=== PATIENT | female | born 1945 | race Caucasian/White ===

== ENCOUNTER → 2016-08-17 | Outpatient (REF) | payer MEDICARE, OTHER ==
[2016-08-17 09:51] LABS: BASO # 0.1 K/mm3 (0.0-0.2); BASO % 1.6 % (0.0-1.0); EOS # 0.2 K/mm3 (0.0-0.50); EOS % 3.1 % (0.0-3.0); LARGE UNSTAINED CELL # 0.1 K/mm3 (0.0-0.4); LYMPH # 2.3 K/mm3 (1.5-4.5); LYMPH % 34.9 % (24.0-44.0); MEAN CORPUSCULAR HEMOGLOBIN 29.6 pg (27.0-33.0); MEAN CORPUSCULAR HGB CONC 33.2 g/dl (32.0-36.5); MEAN CORPUSCULAR VOLUME 89.2 fl (80.0-96.0); MONO # 0.4 K/mm3 (0.0-0.8); MONO % 6.6 % (0.0-5.0); NEUTROPHILS # 3.4 K/mm3 (1.8-7.7); NEUTROPHILS % 51.8 % (36.0-66.0); PLATELET COUNT, AUTOMATED 256 k/mm3 (150-450); RED CELL DISTRIBUTION WIDTH 13.2 % (11.5-14.5); WHITE BLOOD COUNT 6.6 K/mm3 (4.0-10.0)
[2016-08-17 10:19] LABS: ALBUMIN 3.9 GM/DL (3.2-5.2); ALKALINE PHOSPHATASE 76 U/L (45-117); ALT/SGPT 33 U/L (12-78); ANION GAP 7 MEQ/L (8-16); AST/SGOT 16 U/L (15-37); BILIRUBIN,TOTAL 0.5 MG/DL (0.2-1.0); BLOOD UREA NITROGEN 20 MG/DL (7-18); CALCIUM LEVEL 8.5 MG/DL (8.8-10.2); CARBON DIOXIDE LEVEL 29 MEQ/L (21-32); CHLORIDE LEVEL 106 MEQ/L (98-107); CHOLESTEROL LEVEL 143 MG/DL (<200); CREATININE FOR GFR 0.79 MG/DL (0.55-1.02); GLOMERULAR FILTRATION RATE > 60.0 (>39); GLUCOSE, FASTING 115 MG/DL (83-110); POTASSIUM SERUM 4.2 MEQ/L (3.5-5.1); SODIUM LEVEL 142 MEQ/L (136-145); TOTAL PROTEIN 6.5 GM/DL (6.4-8.2); TRIGLYCERIDES LEVEL 115 MG/DL (<150)
== END ==
LOC: M LAB REF 09:24
PROVIDERS: ATTEND Family Medicine
DX: I10 Essential (primary) hypertension (principal); R73.9 Hyperglycemia, unspecified; E78.00 Pure hypercholesterolemia, unspecified

== ENCOUNTER → 2016-08-20 | Outpatient (CLI) | payer MEDICARE, OTHER ==
--- NOTE | 2016-08-20 10:35 | REP ---
LEFT HIP, TWO VIEWS: HISTORY: Pain. There is no acute fracture or dislocation. There is narrowing of the joint space. There is sclerosis in the acetabulum. IMPRESSION: Degenerative change as described above. Signed by Maksim Marino MD 08/20/2016 10:40 A
--- NOTE | 2016-08-20 10:37 | REP ---
LUMBAR SPINE, FIVE VIEWS: HISTORY: Left hip pain. COMPARISON: 10/09/2011 There is no acute fracture. The intervertebral discs are decreased in height consistent with disc degeneration. Osteophytes are present on L2, L3, and L5. There is sclerosis of the endplates of the L2 and L3 vertebral bodies. There is narrowing of the L4-5 and L5-S1 facet joints. There are 3 mm of retrolisthesis of L2 on L3 and 3 mm of grade 1 spondylolisthesis of L4 on L5. Calcification is present in the right upper quadrant, likely representing cholelithiasis. IMPRESSION: Degenerative change as described above. Signed by Maksim Marino MD 08/20/2016 10:39 A
== END ==
LOC: M LAB 09:11
PROVIDERS: ATTEND Physician Assistant
DX: M25.552 Pain in left hip (principal)

== ENCOUNTER → 2016-08-21 | Outpatient (REF) ==
--- NOTE | 2016-08-21 09:41 | REPMRS ---
Patient History The patient states she had a clinical breast exam in Patient is postmenopausal. Family history of breast cancer in mother at age 50 or over, breast cancer in maternal aunt at age 50 or over, and breast cancer in maternal grandmother under age 50. Digital Woman Screen Mammo: August 21, 2016 - Exam #: [id number] Bilateral CC and MLO view(s) were taken. Technologist: Ramona Kaiser, Technologist Prior study comparison: August 11, 2015, digital woman screen mammo performed at [facility]. August 09, 2014, digital woman screen mammo performed at [facility]. FINDINGS: There are scattered fibroglandular densities. There has been no change in the appearance of the mammogram from the prior studies. There is a mild amount of residual fibroglandular tissue which is fairly symmetric. There is no interval development of dominant mass, architectural distortion, or clustered microcalcification suggestive of malignancy. ASSESSMENT: BI-RADS/ACR category 1 mammogram. Negative. Recommendation Routine screening mammogram in 1 year (for women over age 40). This mammogram was interpreted with the aid of an FDA-approved computer-aided dectection system. Electronically Signed By: Darron Barcenas MD 08/21/16 2084
== END ==
LOC: M WHC 08:16
PROVIDERS: ATTEND Nurse Practitioner Women's Health
DX: Z12.31 Encounter for screening mammogram for malignant neoplasm of breast (principal); Z78.0 Asymptomatic menopausal state

== ENCOUNTER → 2016-08-21 | Outpatient (REF) | payer MEDICARE, OTHER | LOC: M SFHCWAGY 08:32 | PROVIDERS: ATTEND Nurse Practitioner Women's Health | DX: Z12.4 Encounter for screening for malignant neoplasm of cervix (principal) | CPT/HCPCS: G0101; G0123 ==

== ENCOUNTER → 2016-08-29 | Outpatient (CLI) | payer OTHER, MEDICARE ==
--- NOTE | 2016-08-30 02:18 | REP ---
Clinical: Routine checkup. Technique: PA and lateral. Comparison: 08/12/2014. Findings: The mediastinum and cardiac silhouette are normal. The lung nye are well-aerated and clear in the frontal projection. However, lateral projection suggest the possibility of infiltrate involving the posterior lower lung zone and correlation is recommended. No effusion. No pneumothorax. Skeletal structures intact. Impression: Cannot exclude an infiltrative process in the posterior inferior lung zone based on lateral radiograph. If the patient asymptomatic, chest CT may be warranted for further investigation. Signed by Francisco Linares MD 08/30/2016 02:09 A
--- NOTE | 2016-08-30 18:42 | ECGEPIP ---
Stationary ECG Study [facility] Test Date: 2016-08-29 Pat Name: CHRIS PUENTE Department: Room: - Gender: F Drafter Assistant: : 1945 Requested By: Joe CARMICHAELC Order Number: [id number] Reading MD: Elliot Gordon Measurements Intervals Effie Rate: 63 P: 47 NE: 187 QRS: -12 QRSD: 85 T: 15 QT: 404 QTc: 414 Interpretive Statements SINUS RHYTHM NON-SPECIFIC ANTERIOR ST/T ABNORMALITY COMPARED TO THE LAST 2 TRACINGS, NO SIGNIFICANT CHANGES Electronically Signed On 08-30-2016 18:41:51 EDT by Elliot Gordon
== END ==
LOC: M EKG 16:11
PROVIDERS: ATTEND Physician Assistant
DX: Z00.00 Encounter for general adult medical examination without abnormal findings (principal)

== ENCOUNTER → 2016-09-03 | Outpatient (CLI) | payer MEDICARE, OTHER ==
--- NOTE | 2016-09-04 06:33 | REP ---
CT OF THE CHEST WITHOUT CONTRAST: No priors for comparison. REASON FOR EXAM: Prior plain film examination of the chest 08/29/2016 showed a potential process in the posterior inferior lung zone seen only on the lateral view. That prior exam was reviewed. The lack of intravenous contrast decreases the sensitivity of the exam. There is no evidence of mediastinal or hilar adenopathy. There are no pleural or pericardial effusions. The imaged upper abdomen shows cholelithiasis. The imaged osseous structures are within normal limits for the patient's age. Evaluation of the lung nye show no abnormal nodules, mass, or opacities. Mild biapical pleuroparenchymal scarring is suspected. IMPRESSION: No evidence of acute disease. Findings as described above. Signed by Lee Price DO 09/04/2016 01:59 P
== END ==
LOC: M RAD 16:07
PROVIDERS: ATTEND Physician Assistant
DX: R09.89 Other specified symptoms and signs involving the circulatory and respiratory systems (principal)

== ENCOUNTER → 2016-09-07 | Outpatient (CLI) | payer MEDICARE, OTHER ==
--- NOTE | 2016-09-10 10:41 | DEXA ---
AP SPINE L1 - L4 1.321 1.0 2.0 LT FEMUR TOTAL 1.142 1.1 0.1 RT FEMUR TOTAL 1.191 1.5 2.5 TOTAL BODY TOTAL OTHER DUAL FEMUR FRAX* ASSESSMENT Risk factors: None. 10 year probability of fracture Major osteoporotic fracture 6.6 % Hip fracture 0.3 % COMMENTS: Normal bone densitometry of the spine and hips. The density of the spine has increased 11.0% since 05/31/2011. The density of the left hip has increased 1.5% since 05/31/2011. The density of the right hip has increased 1.3% since 05/31/2011. FOLLOW-UP: Recommendation for the next bone density exam: 5 years. FELICIA
== END ==
LOC: M WHC 08:02
PROVIDERS: ATTEND Nurse Practitioner Women's Health
DX: Z13.820 Encounter for screening for osteoporosis (principal); Z78.0 Asymptomatic menopausal state

== ENCOUNTER → 2016-10-26 | Outpatient (REF) ==
[2016-10-26 09:58] LABS: ANION GAP 5 MEQ/L (8-16); BLOOD UREA NITROGEN 22 MG/DL (7-18); CALCIUM LEVEL 8.9 MG/DL (8.8-10.2); CARBON DIOXIDE LEVEL 28 MEQ/L (21-32); CHLORIDE LEVEL 110 MEQ/L (98-107); CHOLESTEROL LEVEL 150 MG/DL (<200); CREATININE FOR GFR 0.83 MG/DL (0.55-1.02); GLOMERULAR FILTRATION RATE > 60.0 (>39); GLUCOSE, FASTING 100 MG/DL (83-110); POTASSIUM SERUM 4.2 MEQ/L (3.5-5.1); SODIUM LEVEL 143 MEQ/L (136-145); TRIGLYCERIDES LEVEL 99 MG/DL (<150)
[2016-10-26 10:02] LABS: MEAN CORPUSCULAR HEMOGLOBIN 30.6 pg (27.0-33.0); MEAN CORPUSCULAR HGB CONC 33.8 g/dl (32.0-36.5); MEAN CORPUSCULAR VOLUME 90.7 fl (80.0-96.0); RED CELL DISTRIBUTION WIDTH 13.2 % (11.5-14.5)
[2016-10-26 10:03] LABS: HEPATITIS B SURFACE ANTIBODY NEGATIVE (POSITIVE)
== END ==
LOC: M LAB REF 09:17
PROVIDERS: ATTEND Physician Assistant
DX: Z00.00 Encounter for general adult medical examination without abnormal findings (principal)

== ENCOUNTER → 2016-11-19 | Outpatient (REF) | payer MEDICARE, OTHER ==
[2016-11-19 16:47] LABS: ANION GAP 7 MEQ/L (8-16); BLOOD UREA NITROGEN 16 MG/DL (7-18); CALCIUM LEVEL 9.6 MG/DL (8.8-10.2); CARBON DIOXIDE LEVEL 29 MEQ/L (21-32); CHLORIDE LEVEL 107 MEQ/L (98-107); CREATININE FOR GFR 0.81 MG/DL (0.55-1.02); GLOMERULAR FILTRATION RATE > 60.0 (>39); GLUCOSE, FASTING 86 MG/DL (83-110); POTASSIUM SERUM 4.6 MEQ/L (3.5-5.1); SODIUM LEVEL 143 MEQ/L (136-145)
== END ==
LOC: M LAB REF 15:40
PROVIDERS: ATTEND Physician Assistant
DX: R73.01 Impaired fasting glucose (principal)

== ENCOUNTER → 2016-11-20 | Outpatient (CLI) | payer MEDICARE, OTHER ==
--- NOTE | 2016-11-20 12:57 | REP ---
Cervical spine seven views: There are no comparisons. Vertebral body heights are normal C1-C7. Kilos obscured by the shoulders on all lateral views. There is advanced degenerative disc disease at C 05/06 and C6-7. There is a slight anterolisthesis on the flexion view see three and C4 which corrects on the extension view, likely ligamentous laxity. The prevertebral soft tissues are normal. There is facet osteoarthritis. There is bony foraminal encroachment on the left at C 03/04 from facet hypertrophy and on the right at C 05/06 from uncinate spurring and at C 06/07 from uncinate spurring. The odontoid view is unremarkable. Impression: Degenerative disc disease. Facet osteoarthritis. Mild listhesis, likely from ligamentous laxity as described. Bony foraminal encroachment as described. Depending on symptomatology consider MRI. Signed by Darron Gillis MD 11/20/2016 12:49 P
== END ==
LOC: M WUC 09:55
PROVIDERS: ATTEND Family Medicine
DX: M54.2 Cervicalgia (principal)

== ENCOUNTER → 2017-03-25 | Outpatient (REF) | payer MEDICARE, OTHER ==
[2017-03-25 10:45] LABS: ALBUMIN 3.8 GM/DL (3.2-5.2); ALBUMIN/GLOBULIN RATIO 1.46 (1.00-1.93); ALKALINE PHOSPHATASE 75 U/L (45-117); ALT/SGPT 34 U/L (12-78); ANION GAP 7 MEQ/L (8-16); AST/SGOT 16 U/L (7-37); BILIRUBIN,TOTAL 0.6 MG/DL (0.2-1.0); BLOOD UREA NITROGEN 19 MG/DL (7-18); CALCIUM LEVEL 9.1 MG/DL (8.8-10.2); CARBON DIOXIDE LEVEL 29 MEQ/L (21-32); CHLORIDE LEVEL 108 MEQ/L (98-107); CHOLESTEROL LEVEL 162 MG/DL (<200); GLOMERULAR FILTRATION RATE > 60.0 (>39); GLUCOSE, FASTING 114 MG/DL (83-110); POTASSIUM SERUM 4.3 MEQ/L (3.5-5.1); SODIUM LEVEL 144 MEQ/L (136-145); TOTAL PROTEIN 6.4 GM/DL (6.4-8.2); TRIGLYCERIDES LEVEL 103 MG/DL (<150)
== END ==
LOC: M LAB REF 09:58
PROVIDERS: ATTEND Family Medicine
DX: E78.00 Pure hypercholesterolemia, unspecified (principal); R73.01 Impaired fasting glucose; I10 Essential (primary) hypertension

== ENCOUNTER 2017-05-08 09:22 | Day surgery (SDC) | payer MEDICARE, OTHER ==
[2017-05-08] MEDS: NS 1,000 ML IV (09:30)
[2017-05-08] MEDS ORDERED: LIDOCAINE 2% INJ 100 MG/5 ML SDV (FOR ANES.) As Ordered (09:42)
[2017-05-08] MEDS ORDERED: PROPOFOL 200 MG/20 ML VIAL As Ordered (09:42)
== END 2017-05-08 11:37 | disposition home or self-care (01) ==
LOC: M OPP 09:22
DX: Z12.11 Encounter for screening for malignant neoplasm of colon (principal); K64.0 First degree hemorrhoids; R12 Heartburn; K21.9 Gastro-esophageal reflux disease without esophagitis; K22.8 Other specified diseases of esophagus; K29.70 Gastritis, unspecified, without bleeding; K80.20 Calculus of gallbladder without cholecystitis without obstruction; I10 Essential (primary) hypertension; E78.5 Hyperlipidemia, unspecified; Z78.0 Asymptomatic menopausal state; Z87.891 Personal history of nicotine dependence; Z79.899 Other long term (current) drug therapy; Z80.1 Family history of malignant neoplasm of trachea, bronchus and lung; Z80.3 Family history of malignant neoplasm of breast; Z80.52 Family history of malignant neoplasm of bladder; Z80.51 Family history of malignant neoplasm of kidney
CPT/HCPCS: G0121

== ENCOUNTER → 2017-08-26 | Outpatient (REF) | payer MEDICARE, OTHER ==
[2017-08-26 11:46] LABS: ESTIMATED AVERAGE GLUCOSE 126 MG/DL (60-110)
[2017-08-26 12:14] LABS: ANION GAP 7 MEQ/L (8-16); BLOOD UREA NITROGEN 16 MG/DL (7-18); CARBON DIOXIDE LEVEL 26 MEQ/L (21-32); CHLORIDE LEVEL 110 MEQ/L (98-107); CREATININE FOR GFR 0.92 MG/DL (0.55-1.30); GLOMERULAR FILTRATION RATE > 60.0 (>39); GLUCOSE, FASTING 108 MG/DL (70-100); POTASSIUM SERUM 4.4 MEQ/L (3.5-5.1); SODIUM LEVEL 143 MEQ/L (136-145)
== END ==
LOC: M LAB 11:16
DX: I10 Essential (primary) hypertension (principal)
CPT/HCPCS: 83036

== ENCOUNTER → 2017-09-18 | Outpatient (REF) | payer MEDICARE, OTHER | LOC: M SFHCWAGY 12:31 | DX: Z12.4 Encounter for screening for malignant neoplasm of cervix (principal); N95.2 Postmenopausal atrophic vaginitis | CPT/HCPCS: G0123 ==

== ENCOUNTER → 2017-09-18 | Outpatient (CLI) | payer MEDICARE, OTHER | LOC: M WHC 11:30 | DX: Z12.31 Encounter for screening mammogram for malignant neoplasm of breast (principal); Z78.0 Asymptomatic menopausal state; Z80.3 Family history of malignant neoplasm of breast; Z12.4 Encounter for screening for malignant neoplasm of cervix; N95.2 Postmenopausal atrophic vaginitis | CPT/HCPCS: 77067; G0123 ==

== ENCOUNTER → 2018-01-22 | Outpatient (CLI) | payer MEDICARE, OTHER ==
[2018-01-22 12:06] LABS: BASO # 0.1 10^3/uL (0.0-0.2); BASO % 1.7 % (0.0-1.0); EOS # 0.2 10^3/uL (0.0-0.50); EOS % 2.8 % (0.0-3.0); HEMATOCRIT 39.2 % (36.0-47.0); HEMOGLOBIN 13.2 g/dl (12.0-15.5); IMMATURE GRANULOCYTE % 0.5 % (0-3.0); LYMPH # 2.3 10^3/uL (1.5-4.5); LYMPH % 37.7 % (24.0-44.0); MEAN CORPUSCULAR HEMOGLOBIN 30.4 pg (27.0-33.0); MEAN CORPUSCULAR HGB CONC 33.7 g/dl (32.0-36.5); MEAN CORPUSCULAR VOLUME 90.3 fl (80.0-96.0); MONO # 0.6 10^3/uL (0.0-0.8); NEUTROPHILS # 2.8 10^3/uL (1.8-7.7); NEUTROPHILS % 47.3 % (36.0-66.0); PLATELET COUNT, AUTOMATED 228 10^3/uL (150-450); RED BLOOD COUNT 4.34 10^6/uL (4.00-5.40); RED CELL DISTRIBUTION WIDTH 12.7 % (11.5-14.5)
[2018-01-22 15:04] LABS: ESTIMATED AVERAGE GLUCOSE 123 MG/DL (60-110); HEMOGLOBIN A1c 5.9 %
[2018-01-22 17:07] LABS: ALKALINE PHOSPHATASE 73 U/L (45-117); ALT/SGPT 40 U/L (12-78); ANION GAP 8 MEQ/L (8-16); AST/SGOT 21 U/L (7-37); BILIRUBIN,TOTAL 0.6 MG/DL (0.2-1.0); BLOOD UREA NITROGEN 20 MG/DL (7-18); CALCIUM LEVEL 9.4 MG/DL (8.8-10.2); CARBON DIOXIDE LEVEL 27 MEQ/L (21-32); CHLORIDE LEVEL 109 MEQ/L (98-107); CREATININE FOR GFR 0.79 MG/DL (0.55-1.30); GLOMERULAR FILTRATION RATE > 60.0 (>39); GLUCOSE, FASTING 93 MG/DL (70-100); POTASSIUM SERUM 4.3 MEQ/L (3.5-5.1); SODIUM LEVEL 144 MEQ/L (136-145)
[2018-01-22 17:08] LABS: ALBUMIN 4.1 GM/DL (3.2-5.2); ALBUMIN/GLOBULIN RATIO 1.64 (1.00-1.93); CHOLESTEROL LEVEL 131 MG/DL (<200); CHOLESTEROL RISK RATIO 2.425 (<5); HDL CHOLESTEROL 54 MG/DL (>40); LDL CHOLESTEROL 57 MG/DL (<100); NON-HDL-C 77 MG/DL; TOTAL PROTEIN 6.6 GM/DL (6.4-8.2); TRIGLYCERIDES LEVEL 99 MG/DL (<150)
[2018-01-22 17:09] LABS: FREE T4 0.84 NG/DL (0.76-1.46)
== END ==
LOC: M LAB 11:05
DX: I10 Essential (primary) hypertension (principal); R73.01 Impaired fasting glucose; E78.00 Pure hypercholesterolemia, unspecified; K21.9 Gastro-esophageal reflux disease without esophagitis
CPT/HCPCS: 84443

== ENCOUNTER → 2018-01-24 | Outpatient (REF) | payer MEDICARE, OTHER ==
[2018-01-24 15:52] LABS: CPK CREATINE PHOSPHOKINASE 168 U/L (26-192)
[2018-01-24 15:52] LABS: C REACTIVE PROTEIN QUANTITATIV < 0.30 MG/DL (0.00-0.30)
[2018-01-24 16:28] LABS: ERYTHROCYTE SEDIMENTATION RATE 13 mm/hr (0-30)
[2018-01-28 00:07] LABS: Lyme Disease IgG/IgM Antibodie <0.91 ISR (0.00-0.90); Lyme Disease IgM Ab Quantitati <0.80 index (0.00-0.79)
== END ==
LOC: M LABDRAW1 11:01
DX: M25.50 Pain in unspecified joint (principal)
CPT/HCPCS: 82550

== ENCOUNTER → 2018-02-19 | Outpatient (CLI) | payer MEDICARE, OTHER | LOC: M CARPUL 09:40 | DX: R01.1 Cardiac murmur, unspecified (principal) | CPT/HCPCS: 93306 ==

== ENCOUNTER → 2018-03-18 | Outpatient (REF) | payer MEDICARE, OTHER | LOC: M LAB REF 16:12 | DX: C44.622 Squamous cell carcinoma of skin of right upper limb, including shoulder (principal) | CPT/HCPCS: 88304 ==

== ENCOUNTER → 2018-07-24 | Outpatient (REF) | payer MEDICARE, OTHER ==
[~2018-07-24] MED LIST: LOSA100T50 PO; ROSU40TA3 PO
[2018-07-24 14:42] LABS: ALBUMIN 4.2 GM/DL (3.2-5.2); ALT/SGPT 42 U/L (12-78); BILIRUBIN,TOTAL 0.7 MG/DL (0.2-1.0); BLOOD UREA NITROGEN 22 MG/DL (7-18); CALCIUM LEVEL 9.3 MG/DL (8.8-10.2); CARBON DIOXIDE LEVEL 28 MEQ/L (21-32); CHLORIDE LEVEL 107 MEQ/L (98-107); CREATININE FOR GFR 0.82 MG/DL (0.55-1.30); GLOMERULAR FILTRATION RATE > 60.0 (>39); GLUCOSE, FASTING 93 MG/DL (70-100); POTASSIUM SERUM 4.6 MEQ/L (3.5-5.1); SODIUM LEVEL 141 MEQ/L (136-145); TOTAL PROTEIN 6.7 GM/DL (6.4-8.2)
[2018-07-26 00:08] LABS: Lyme Disease IgG/IgM Antibodie <0.91 ISR (0.00-0.90); Lyme Disease IgM Ab Quantitati <0.80 index (0.00-0.79)
== END ==
LOC: M LABDRAW1 13:58
PROVIDERS: ATTEND Family Medicine
DX: R73.01 Impaired fasting glucose (principal); M25.50 Pain in unspecified joint

== ENCOUNTER → 2018-08-13 | Outpatient (REF) | payer MEDICARE, OTHER | LOC: M SFHCPLAZ 11:13 | PROVIDERS: ATTEND Internal Medicine Rheumatology | DX: M25.50 Pain in unspecified joint (principal); Z53.8 Procedure and treatment not carried out for other reasons | CPT/HCPCS: 36415; G0463 ==

== ENCOUNTER → 2018-08-18 | Outpatient (CLI) | payer MEDICARE, OTHER | LOC: M LAB 13:50 | PROVIDERS: ATTEND Internal Medicine Rheumatology | DX: M25.50 Pain in unspecified joint (principal) ==

== ENCOUNTER → 2018-09-24 | Outpatient (CLI) | payer MEDICARE, OTHER ==
--- NOTE | 2018-09-24 10:47 | REPMRS ---
Patient History The patient states she had a clinical breast exam in 08/2018. Patient is postmenopausal. Family history of breast cancer at age 50 or over in mother, breast cancer at age 50 or over in maternal aunt, breast cancer under age 50 in maternal grandmother. No Hormone Replacement Therapy 3D TOMOSYNTHESIS WAS PERFORMED. Digital Woman Screen Mammo: September 24, 2018 - Exam #: [id number] Bilateral CC and MLO view(s) were taken. Technologist: Margie Upton, Technologist Prior study comparison: September 18, 2017, digital woman screen mammo performed at [facility]. August 21, 2016, digital woman screen mammo performed at [facility]. FINDINGS: There are scattered fibroglandular densities. There has been no change in the appearance of the mammogram from the prior studies. There is a mild amount of residual fibroglandular tissue which is fairly symmetric. There is no interval development of dominant mass, architectural distortion, or clustered microcalcification suggestive of malignancy. Assessment: BI-RADS/ACR category 1 mammogram. Negative Mammogram. Recommendation Routine screening mammogram in 1 year (for women over age 40). This mammogram was interpreted with the aid of an FDA-approved computer-aided dectection system. Electronically Signed By: Darron Barcenas MD 09/24/18 1445
== END ==
LOC: M WHC 09:25
PROVIDERS: ATTEND Family Medicine
DX: Z01.419 Encounter for gynecological examination (general) (routine) without abnormal findings (principal); Z12.31 Encounter for screening mammogram for malignant neoplasm of breast; Z78.0 Asymptomatic menopausal state; Z80.3 Family history of malignant neoplasm of breast
CPT/HCPCS: 77063; 77067; G0101

== ENCOUNTER → 2019-03-23 | Outpatient (CLI) | payer MEDICARE, OTHER ==
[~2019-03-23] MED LIST changes: -ROSU40TA3 PO; +ROSU40TA4 PO
[2019-03-23 13:06] LABS: BASO # 0.1 10^3/uL (0.0-0.2); BASO % 2.1 % (0.0-1.0); EOS # 0.1 10^3/uL (0.0-0.5); EOS % 2.1 % (0.0-3.0); HEMATOCRIT 40.8 % (36.0-47.0); HEMOGLOBIN 13.3 g/dl (12.0-15.5); LYMPH % 38.6 % (24.0-44.0); MEAN CORPUSCULAR HGB CONC 32.6 g/dl (32.0-36.5); MEAN CORPUSCULAR VOLUME 91.9 fl (80.0-96.0); MONO # 0.6 10^3/uL (0.0-0.8); MONO % 11.7 % (0.0-5.0); NEUTROPHILS # 2.4 10^3/uL (1.5-8.5); NEUTROPHILS % 44.9 % (36.0-66.0); PLATELET COUNT, AUTOMATED 246 10^3/uL (150-450); RED BLOOD COUNT 4.44 10^6/uL (4.00-5.40); WHITE BLOOD COUNT 5.3 10^3/uL (4.0-10.0)
[2019-03-23 13:22] LABS: ALBUMIN 3.6 GM/DL (3.2-5.2); ALT/SGPT 46 U/L (12-78); BILIRUBIN,TOTAL 0.9 MG/DL (0.2-1.0); BLOOD UREA NITROGEN 22 MG/DL (7-18); CALCIUM LEVEL 9.1 MG/DL (8.8-10.2); CARBON DIOXIDE LEVEL 28 MEQ/L (21-32); CHLORIDE LEVEL 107 MEQ/L (98-107); CHOLESTEROL LEVEL 151 MG/DL (<200); CHOLESTEROL RISK RATIO 2.903 (<5); CREATININE FOR GFR 0.95 MG/DL (0.55-1.30); GLOMERULAR FILTRATION RATE > 60.0 (>39); GLUCOSE, FASTING 111 MG/DL (70-100); HDL CHOLESTEROL 52 MG/DL (>40); LDL CHOLESTEROL 78 MG/DL (<100); NON-HDL-C 99 MG/DL; POTASSIUM SERUM 4.1 MEQ/L (3.5-5.1); SODIUM LEVEL 143 MEQ/L (136-145); TOTAL PROTEIN 6.6 GM/DL (6.4-8.2); TRIGLYCERIDES LEVEL 105 MG/DL (<150)
[2019-03-23 14:13] LABS: HEMOGLOBIN A1c 6.2 %
== END ==
LOC: M WUC 09:54
PROVIDERS: ATTEND Family Medicine
DX: R73.01 Impaired fasting glucose (principal); E78.00 Pure hypercholesterolemia, unspecified; K21.9 Gastro-esophageal reflux disease without esophagitis

== ENCOUNTER → 2019-10-12 | Outpatient (CLI) | payer MEDICARE, OTHER ==
[2019-10-12 17:34] LABS: HEMOGLOBIN A1c 6.1 %
[2019-10-12 17:49] LABS: BLOOD UREA NITROGEN 19 MG/DL (7-18); CALCIUM LEVEL 9.4 MG/DL (8.8-10.2); CARBON DIOXIDE LEVEL 25 MEQ/L (21-32); CHLORIDE LEVEL 108 MEQ/L (98-107); CREATININE FOR GFR 0.86 MG/DL (0.55-1.30); GLOMERULAR FILTRATION RATE > 60.0 (>39); GLUCOSE, FASTING 101 MG/DL (70-100); POTASSIUM SERUM 4.2 MEQ/L (3.5-5.1); SODIUM LEVEL 140 MEQ/L (136-145)
== END ==
LOC: M WUC 11:59
PROVIDERS: ATTEND Physician Assistant
DX: R73.01 Impaired fasting glucose (principal)

== ENCOUNTER → 2019-10-13 | Outpatient (CLI) | payer MEDICARE, OTHER ==
[~2019-10-13] MED LIST changes: +ALEV220T22 PO; +VITA200010
--- NOTE | 2019-10-13 13:03 | REPMRS ---
Patient History The patient states she has not had a clinical breast exam in over a year. Family history of breast cancer at age 50 or over in mother, breast cancer at age 50 or over in maternal aunt, breast cancer under age 50 in maternal grandmother. No Hormone Replacement Therapy Digital Woman Screen Mammo: October 13, 2019 - Exam #: [id number] Bilateral CC and MLO view(s) were taken. Technologist: Eulalia Hester Technologist Prior study comparison: September 24, 2018, bilateral digital woman screen mammo performed at [facility]. September 18, 2017, digital woman screen mammo performed at [facility]. August 21, 2016, digital woman screen mammo performed at [facility]. FINDINGS: The breast tissue is almost entirely fat. The Volpara volumetric breast density category is: A. There has been no change in the appearance of the mammogram from the prior studies. There is no interval development of dominant mass, architectural distortion, or grouped microcalcification typical of malignancy. 3-D tomosynthesis shows no additional findings. Assessment: BI-RADS/ACR category 1 mammogram. Negative Mammogram. Recommendation Routine screening mammogram of both breasts in 1 year (for women over age 40). This patient's Lifetime Breast Cancer RIsk is estimated at 13.1 %. This mammogram was interpreted with the aid of an FDA-approved computer-aided dectection system. Electronically Signed By: Alex Mcmahon MD 10/13/19 [id number]
== END ==
LOC: M WHC 12:00
PROVIDERS: ATTEND Family Medicine
DX: Z12.31 Encounter for screening mammogram for malignant neoplasm of breast (principal); Z80.3 Family history of malignant neoplasm of breast

== ENCOUNTER → 2020-04-08 | Outpatient (CLI) | payer MEDICARE, OTHER ==
[~2020-04-08] MED LIST changes: -ALEV220T22 PO; -VITA200010
[2020-04-08 14:39] LABS: BASO # 0.1 10^3/uL (0.0-0.2); BASO % 1.6 % (0.0-1.0); EOS # 0.2 10^3/uL (0.0-0.5); EOS % 2.7 % (0.0-3.0); HEMATOCRIT 40.2 % (36.0-47.0); HEMOGLOBIN 13.2 g/dl (12.0-15.5); LYMPH # 2.3 10^3/uL (1.5-5.0); LYMPH % 36.5 % (24.0-44.0); MEAN CORPUSCULAR HGB CONC 32.8 g/dl (32.0-36.5); MEAN CORPUSCULAR VOLUME 91.4 fl (80.0-96.0); MONO # 0.7 10^3/uL (0.0-0.8); MONO % 10.5 % (0.0-5.0); NEUTROPHILS % 47.9 % (36.0-66.0); PLATELET COUNT, AUTOMATED 223 10^3/uL (150-450); WHITE BLOOD COUNT 6.3 10^3/uL (4.0-10.0)
[2020-04-08 14:44] LABS: ALBUMIN 3.7 GM/DL (3.2-5.2); ALT/SGPT 35 U/L (12-78); BILIRUBIN,TOTAL 0.5 MG/DL (0.2-1.0); BLOOD UREA NITROGEN 18 MG/DL (7-18); CALCIUM LEVEL 9.1 MG/DL (8.8-10.2); CARBON DIOXIDE LEVEL 28 MEQ/L (21-32); CHLORIDE LEVEL 109 MEQ/L (98-107); CHOLESTEROL LEVEL 162 MG/DL (<200); CREATININE FOR GFR 0.81 MG/DL (0.55-1.30); FREE T4 0.85 NG/DL (0.76-1.46); GLOMERULAR FILTRATION RATE > 60.0 (>39); GLUCOSE, FASTING 106 MG/DL (70-100); HDL CHOLESTEROL 54 MG/DL (>40); LDL CHOLESTEROL 82 MG/DL (<100); NON-HDL-C 108 MG/DL; POTASSIUM SERUM 4.2 MEQ/L (3.5-5.1); SODIUM LEVEL 141 MEQ/L (136-145); TOTAL PROTEIN 6.3 GM/DL (6.4-8.2); TRIGLYCERIDES LEVEL 132 MG/DL (<150)
[2020-04-08 15:09] LABS: HEMOGLOBIN A1c 5.9 %
== END ==
LOC: M WUC 10:00
PROVIDERS: ATTEND Family Medicine
DX: I10 Essential (primary) hypertension (principal); E78.00 Pure hypercholesterolemia, unspecified; K21.9 Gastro-esophageal reflux disease without esophagitis; R73.03 Prediabetes

== ENCOUNTER → 2020-06-01 | Outpatient (CLI) | payer MEDICARE, OTHER ==
[~2020-06-01] MED LIST changes: +ALEV220T22 PO; +VITA200010
== END ==
LOC: M LABSMTC 11:54
PROVIDERS: ATTEND Anesthesiology
DX: Z01.812 Encounter for preprocedural laboratory examination (principal); Z20.822 Contact with and (suspected) exposure to COVID-19

== ENCOUNTER 2020-06-06 10:08 | Day surgery (SDC) | payer MEDICARE, OTHER ==
[~2020-06-06] VITALS: Ht 160 cm; Wt 86.6 kg
[~2020-06-06 10:08] MED LIST changes: +CEFUROXIME 1MG/0.1ML INTRACAMERAL INJ As Ordered ONE; +DUOVISC (0.50ML VISCOAT/0.55ML PROVISC) OPHTH KIT As Ordered ONE; +OFLOXACIN 0.3 % (OCUFLOX) OPTH SOL 5ML OS ONE; +PHENYLEPHRINE 2.5% OPHTH SOL 2ML OS ONE; +POVIDONE-IODINE 5% OPHTH PREP SOL 30ML As Ordered ONE; +PROPARACAINE 0.5% OPHTH SOL 15ML OS ONE; +TROPICAMIDE 1% OPHTH SOLN 2ML OS ONE
[2020-06-06] MEDS ORDERED: BSS IRR 500ML/OMIDRIA 4ML IRR BAG (OR ONLY) As Ordered ONE (10:42)
[2020-06-06] MEDS ORDERED: fentaNYL 100 MCG/2 ML INJECTION (J3010) As Ordered ONE (11:04)
[2020-06-06] MEDS ORDERED: MIDAZOLAM INJ 2MG/2ML VIAL (J2250 PER 1MG) As Ordered ONE (11:04)
[2020-06-06 11:22] VITALS: BP 132/74
--- NOTE | 2020-06-08 10:40 | RO ---
OPERATIVE NOTE DATE OF OPERATION: 06/06/2020 PREOPERATIVE DIAGNOSES: 1. Visually significant nuclear sclerotic cataract, left eye. 2. Primary open-angle glaucoma, moderate stage, left eye. POSTOPERATIVE DIAGNOSES: 1. Visually significant nuclear sclerotic cataract, left eye. 2. Primary open-angle glaucoma, moderate stage, left eye. PROCEDURES: 1. Extracapsular cataract removal with insertion of intraocular lens implant of the left eye, AU00T0, D 12.0. 2. Placement of Glaukos iStent. ANESTHESIA: Local (Omidria) with MAC COMPLICATIONS: None POSTOPERATIVE CONDITION: Stable INDICATIONS FOR SURGERY: 1. Blurred vision affecting patient's activities of daily living DESCRIPTION OF PROCEDURE: The patient was seen in the preoperative area and properly identified. The correct operative eye was identified and marked. The patient received topical anesthetic, antibiotics, and topical dilating drops. The patient was then transferred to the operating room. The correct side was re-identified and a timeout was performed. The eye was prepped and draped in a sterile fashion. The eyelids were isolated with Tegaderm tape and the lids were held open with an adjustable speculum. A 1.0mm paracentesis incision was made. Omidria was injected into the anterior chamber. Viscoelastic was then injected into the anterior chamber through the paracentesis. Using a 2.4mm sharp-tipped keratome, the anterior chamber was entered via a temporal clear cornea incision. A continuous curvilinear capsulorhexis was created with Utrata forceps. Hydrodissection was performed with BSS on a blunt cannula until the nucleus was able to rotate freely. The crystalline lens was phacoemulsified and aspirated. Irrigation/aspiration was used to remove the cortical material Cohesive viscoelastic was placed into the capsular bag to deepen it. The implant was placed into the capsular bag and allowed to unfold. Placement was confirmed by visualizing the anterior capsulorhexis. Additional viscoelastic was placed in the anterior chamber, and on top of the cornea. The head was untaped, and rotated away. The microscope was rotated to 45 degrees. A gonioprism was placed on the cornea and the angle was visualized. The iStent inject was placed into the trabecular meshwork, approximately 4 clock hours apart without difficulty. A small gush of heme was noted indicating appropriate placement. No hyphema was present. The head was placed face up and the microscope to 0 degrees. Irrigation/aspiration was used to remove the viscoelastic. The clear corneal incision was hydrated with BSS on a blunt cannula. The lens was well positioned. Cefuroxime was injected into the anterior chamber. The incisions were then tested for leaks and found to be negative. The eye was then palpated for appropriate pressure and adjusted accordingly with BSS. The eyelid speculum was then carefully removed. A shield was placed over the eye. The patient tolerated the procedure well and was discharge to the recovery unit in a stable condition.
== END 2020-06-06 11:48 | disposition home or self-care (01) ==
LOC: M SDC 10:08
PROVIDERS: ATTEND Ophthalmology
DX: H25.12 Age-related nuclear cataract, left eye (principal); H40.1122 Primary open-angle glaucoma, left eye, moderate stage; I10 Essential (primary) hypertension; E78.5 Hyperlipidemia, unspecified; K21.9 Gastro-esophageal reflux disease without esophagitis; Z79.899 Other long term (current) drug therapy; Z87.891 Personal history of nicotine dependence
CPT/HCPCS: 66183; 66984; C1783; J1097; J2250; J3010; V2632

== ENCOUNTER → 2020-06-08 | Outpatient (CLI) | payer MEDICARE, OTHER ==
[~2020-06-08] MED LIST changes: -CEFUROXIME 1MG/0.1ML INTRACAMERAL INJ As Ordered ONE; -DUOVISC (0.50ML VISCOAT/0.55ML PROVISC) OPHTH KIT As Ordered ONE; -OFLOXACIN 0.3 % (OCUFLOX) OPTH SOL 5ML OS ONE; -PHENYLEPHRINE 2.5% OPHTH SOL 2ML OS ONE; -POVIDONE-IODINE 5% OPHTH PREP SOL 30ML As Ordered ONE; -PROPARACAINE 0.5% OPHTH SOL 15ML OS ONE; -TROPICAMIDE 1% OPHTH SOLN 2ML OS ONE
== END ==
LOC: M LABSMTC 09:57
PROVIDERS: ATTEND Anesthesiology
DX: Z01.812 Encounter for preprocedural laboratory examination (principal); Z20.822 Contact with and (suspected) exposure to COVID-19

== ENCOUNTER 2020-06-13 09:35 | Day surgery (SDC) | payer MEDICARE, OTHER ==
[~2020-06-13] VITALS: Ht 160 cm; Wt 86.6 kg
[~2020-06-13 09:35] MED LIST changes: +CEFUROXIME 1MG/0.1ML INTRACAMERAL INJ As Ordered ONE; +DUOVISC (0.50ML VISCOAT/0.55ML PROVISC) OPHTH KIT As Ordered ONE; +OFLOXACIN 0.3 % (OCUFLOX) OPTH SOL 5ML OD ONE; +PHENYLEPHRINE 2.5% OPHTH SOL 2ML OD ONE; +POVIDONE-IODINE 5% OPHTH PREP SOL 30ML As Ordered ONE; +PROPARACAINE 0.5% OPHTH SOL 15ML OD ONE; +TROPICAMIDE 1% OPHTH SOLN 2ML OD ONE
--- OUTSIDE RECORDS SUMMARY | 2020-06-13 09:39 | CCD ---
Author Author Gian Madrid MD [facility] Organization Gian Madrid MD [facility] Address [phone] [address] Phone Care Team Providers Care Kiln Worker Name Role Phone Zina KENT, Carmine Unavailable [phone] Reason for Referral No Reason for Referral Recorded Problems Includes: Active, inactive, and resolved Problems All Visits Onset Date - Time Resolved Date - Time Provider Co ndition Status Glaucoma Open-angle Primary Both Eyes 05/10/2020 - 12:00AM Carmine Izaguirre DO Active Glaucoma Open-angle Primary 05/10/2020 - 12:00AM Joel Izaguirre DO Inactive Cataract Senile Cortical 05/10/2020 - 12:00AM Carmine Izaguirre DO Active Refractive Error - Myopia Degenerative 05/10/2020 - 12:00AM Carmine Izaguirre DO Active Cataract Senile Nuclear 05/10/2020 - 12:00AM Carmine andrews DO Active Dry Eye Syndrome 05/10/2020 - 12:00AM Carmine andre DO Active Vitreous Disorders Degeneration 05/10/2020 - 12:00AM Shonda Izaguirre DO Active Plan of Treatment Future Appointments Date Time Location Provider POST OP VISIT WITH PRE-OP 06/08/2020 12:55PM Gian burdick MD [facility] Carmine Izaguirre DO Extracapsular cataract removal w/IOL implant 06/13/2020 8:[address] [facility] Carmine Izaguirre DO 1 Week Post OP 06/21/2020 8:30AM Gian Madrid MD [facility] Shonda Izaguirre DO Assessments Includes: Assessments for all patient encounters Findings Encounter Date Nuclear senile cataract 1 WK PREOP FOR SURGERY with Carmine Polancogildardo KENT 06/01/2020 Cortical senile cataract NEW PATIENT WITH REFERRAL with Donavon Izaguirre DO 05/10/2020 Degenerative myopia NEW PATIENT WITH REFERRAL with Carmine Burdick bethanyjosedante KENT 05/10/2020 Dry eye syndrome NEW PATIENT WITH REFERRAL with Carmine Burdick bethanygeorgina 05/10/2020 Nuclear senile cataract NEW PATIENT WITH REFERRAL with Joel toscano Zina KENT 05/10/2020 Primary open-angle glaucoma of both eyes NEW PATIENT W ITH REFERRAL with Carmine Polancogildardo KENT 05/10/2020 Vitreous degeneration NEW PATIENT WITH REFERRAL with Carmine Polancogildardo KENT 05/10/2020 Instructions Instructions not supported for this document typeNo Instructions Recorded Medical Equipment - Implanted Devices Includes: Current and historical DevicesNo Medical Equipment Recorded Medications Includes: Current and historical Medications Current Medications (continue as prescribed) Moxifloxacin HCl 0.5% Ophthalmic Solution 06/01/2020 Provider: Carmine Izaguirre DO Diagnosis: Age-related nuclear cataract, left eye Three days prior to surgery start one drop four times a day in the left eye BromSite 0.075% Ophthalmic Solution 06/01/2020 Prov ider: Carmine Zina KENT Diagnosis: Age-related nuclear cataract, left eye Three days prior to surgery start one dr op two times a day in the left eye, RUN CARD. SEE PHARM NOTES Inveltys 1% Ophthalmic Suspension 06/01/2020 Provid er: Carmine Zina DO Diagnosis: Age-related nuclear cataract, left eye Day of surgery remove patch start one dr op two times a day in the left eye, RUN CARD. SEE PHARM NOTES Aleve 220 MG Oral Tablet 05/10/2020 Provider: Diagnosis: Vitamin D3 3000 MG Oral Tablet 05/10/2020 Provider: Diagnosis: Losartan 100 mg Oral Tablet 05/10/2020 Provider: Diagnosis: Rosuvastatin Calcium 40 MG Oral Tablet 05/10/2020 P rovider: Diagnosis: Latanoprost 0.005% Ophthalmic Solution 05/10/2020 P rovider: Diagnosis: Soothe XP Ophthalmic Solution 05/10/2020 Provider: Diagnosis: Medications Administered Includes: Administered Medications in patient's chartNo Administered Medications Recorded Vital Signs Includes: Vital Signs from 06/07/2019 through 06/07/2020No Vital Signs Recorded For Specified Dates Results Includes: Results from 06/07/2019 through 06/07/2020No Results Recorded For Specified Dates History of Present Illness History of Present Illness not supported for this document typeNo History of Present Illness Recorded Social History Description Last Updated Tobacco non-user 05/10/2020 Alcohol use - Seldom 05/10/2020 No tobacco use 05/10/2020 Not using drugs 05/10/2020 Previous smoking history 05/10/2020 Smoking status : Former smoker 05/10/2020 Procedures and Surgical History Includes: Procedures from 06/07/2019 through 06/07/2020 Procedures Code Diagnosis Performing Provider Service Location Service Date Intermediate Eye Exam Established Patient (Signi/Sep Eval. & Man.) [id number] Age- related nuclear cataract, left eye Carmine Beatty MD [facility] 06/01/2020 Ophthalmic biometry - IOL Master with IO L calculation (Left side, WAIVER OF LIABILITY ON FILE (ABN)) [id number] Age-related nuclear cataract, left eye Carmine Beatty MD [facility] 06/01/2020 Medical Eye Exam [id number] Age-related nuclear cataract, bilateral, Cortical age- related cataract, bilateral, Primary open-angle glaucoma, bilateral, mild stage Carmine Beatty MD [facility] 05/10/2020 Surgical History Last Updated Surgical / procedural history Appendect susan 1963, Tonsillectomy 1963, Bladder lift 2010 05/10/2020 Medical History Includes: Medical History in patient's chart Description Last Updated History of hyperlipidemia 05/10/2020 History of hypertension 05/10/2020 Reported medical history Heartburn 05/10/2020 Family History Includes: Family History in patient's chart Description Last Updated Maternal history of family history of cancer Paternal history of diabetes mellitus 05/10/2020 Paternal history of heart disease 05/10/2020 Paternal history of stroke/cerebrovascular accident Review of Systems Review of Systems not supported for this document typeNo Review of Systems Recorded Mental Status Mental Status not supported for this document typeNo Mental Status Recorded Functional Status Functional Status not supported for this document typeNo Functional Status Recorded Physical Exam Physical Exam not supported for this document typeNo Physical Exam Recorded Immunizations Includes: Immunizations in patient's chartNo Immunizations Recorded Allergies Includes: Active, inactive, and resolved AllergiesNo Known Allergies Encounters Includes: Encounters from 06/07/2019 through 06/07/2020 Encounter Provider Location Date Check-In Time Check-Out Time D iagnosis Extracapsular cataract removal w/IOL implant Carmine Rivera in [facility] 06/06/2020 06/01/2020 10:50AM 7:00AM 1 [facility]K PREOP FOR SURG[facility] 06/01/2020 12:19PM 1:22PM Cataract Senile Nuclear NEW PATIENT WITH REFERRAL [facility] 05/10/2020 8:29AM 9:42AM Refractive Error - M yopia Degenerative, Dry Eye Syndrome, Cataract Senile Cortical, Cataract Senile Nuclear, Vitreous Disorders Degeneration, Glaucoma Open-angle Primary Both Eyes Insurance Includes: Active Insurance Policies Plan Name Member ID Group # Subscriber Relationship Effective Da rosa 1 - Medicare Part [facility] ([facility]) [id number] Karyna Samuel lvester Self 2 - [employer] /PRIOR AUTHS NEEDED [id number] Narinder Rob Jr Advance Directives Includes: Current Advance DirectivesNo Advance Directives Recorded Health Concerns Includes: Active Health ConcernsNo Active Health Concerns Recorded Goals Includes: Active GoalsNo Active Goals Recorded Interventions Includes: Interventions for active GoalsNo Interventions Recorded Evaluations & Outcomes Includes: Evaluations & Outcomes for active GoalsNo Outcomes Recorded
--- OUTSIDE RECORDS SUMMARY | 2020-06-13 09:39 | CCD | Continuity of Care Document ---
Author Author Karyna MCNEAL PA Organization Unknown Address [address] [facility] [address] [place] [address] Phone [phone] Care Team Providers Care Central Office Operator Name Role Phone Kelly Jones D.O. AUTM Gian Madrid MD AUTM [phone] Problems Active Problems Provider Date Pure hypercholesterolemia Kelly Jones D.O. Onset: 08/25/2014 Elevated blood-pressure reading without diagnosis of h ypertension Kelly Kumar D.O. Onset: 08/25/2014 Multiple joint pain Kelly Jones D.O. Onset: 2014 Actinic keratosis Kelly Jones D.O. Onset: 2014 Epidemic vertigo Kelly Jones D.O. Onset: 2014 Essential hypertension Kelly Jones D.O. Onset: Left upper quadrant pain Kelly Jones D.O. Onset: 0 10/21/2014 Mixed urinary incontinence Kelly Jones D.O. Onset: 03/01/2015 Ex-smoker Kelly Jones D.O. Onset: 2015 Abnormal weight gain Kelly Jones D.O. Onset: 09/04 Abnormal glucose level Kelly Jones D.O. Onset: Impaired fasting glycemia MIRLANDE Meyers Onset: 2016 Wade's esophagus MIRLANDE Meyers Onset: 12/31/2017 Note: biopsy per Dr. Sibley 05/16. Aortic valve sclerosis Kelly Jones D.O. Onset: Social History Type Date Description Comments Sex Unknown ETOH Use Denies alcohol use Tobacco Use Start: Unknown End: Patient is a former smoker Smoking Status Reviewed: 04/12/20 Patient is a former smoker Allergies, Adverse Reactions, Alerts Description No Known Drug Allergies Medications Active Medications SIG Qnty Indications Ordering Provide r Date Losartan Potassium/Hydrochlorothiazide 100-12.5mg Tablets Take One Tablet By Mouth Every Day 30tabs I10 Dada FelixORupinder 04/12/2020 Vitamin D3 50mcg (2000 Ut) Tablets Take One Capsule By Mouth Every Day 90tabs Dada FranklinORupinder 10/13/2019 Cyclobenzaprine HCL 5mg Tablets take one tablet by mouth every night as needed 90tabs M62.830 Kelly Fuchs D.O. 10/13/2019 Rosuvastatin Calcium 40mg Tablets Take One Tablet By Mouth AT Bedtime 30tabs Dada SolitarioORupinder 02/19/[address] 1 by mouth every day as needed. 30caps K21.9 Kelly Jones D.O. 03/26/2017 Aleve 220mg Tablets take 1 capsule daily as needed for pain 90tabs M25.50 Kelly Jones D.O. Zantac 150 Maximum Strength 150mg Tablets 1 by mouth once a day Unknown Immunizations Description No Information Available Vital Signs Date Vital Result Comment 04/12/2020 11:02am BP Systolic 144 mmHg 160/88 rechec k BP Diastolic 78 mmHg 160/88 recheck Height 62.50 inches 5'2.50" Weight 187.12 lb BMI (Body Mass Index) 33.7 kg/m2 Heart Rate 79 /min Respiratory Rate 18 /min Body Temperature 96.8 F O2 % BldC Oximetry 96 % [place] Body Weight 110 lb 10/13/2019 11:29am BP Systolic 136 mmHg BP Diastolic 84 mmHg Height 62.50 inches 5'2.50" Weight 187.00 lb BMI (Body Mass Index) 33.7 kg/m2 Heart Rate 73 /min Respiratory Rate 18 /min Body Temperature 98.1 F O2 % BldC Oximetry 97 % [place] Body Weight 110 lb Results Test Acquired Date Facility Test Result H/L Range Note Comprehensive Metabolic Profil 04/08/[address] [address] [phone] Glucose, Fasting 106 mg/dL High 70-100 Blood Urea Nitrogen 18 mg/dL Normal 7-18 Creatinine For GFR 0.81 mg/dL Normal 0.55-1.30 Glomerular Filtration Rate > 60.0 Normal >39 1 Sodium Level 141 mEq/L Normal 136-145 Potassium Serum 4.2 mEq/L Normal 3.5-5.1 Chloride Level 109 mEq/L High 98-107 Carbon Dioxide Level 28 mEq/L Normal 21-32 Anion Gap 4 mEq/L Low 8-16 Calcium Level 9.1 mg/dL Normal 8.8-10.2 Ast/Sgot 14 U/L Normal 7-37 Alt/SGPT 35 U/L Normal 12-78 Alkaline Phosphatase 75 U/L Normal 45-117 Bilirubin,Total 0.5 mg/dL Normal 0.2-1.0 Total Protein 6.3 GM/DL Low 6.4-8.2 Albumin 3.7 GM/DL Normal 3.2-5.2 Albumin/Globulin Ratio 1.4 Normal 1.2-2.2 Lipid Panel 04/08/2020 [facility] [address] [place] [address] [phone] Triglycerides Level 132 mg/dL Normal <150 Cholesterol Level 162 mg/dL Normal <200 HDL Cholesterol 54 mg/dL Normal >40 LDL Cholesterol 82 mg/dL Normal <100 Non-HDL-C 108 mg/dL Normal Cholesterol Risk Ratio 3.000 Normal <5 CBC With Differential 04/08/[address] [address] [phone] White Blood Count 6.3 10 Normal 4.0-10.0 Red Blood Count 4.40 10 Normal 4.00-5.40 Hemoglobin 13.2 g/dL Normal 12.0-15.5 Hematocrit 40.2 % Normal 36.0-47.0 Mean Corpuscular Volume 91.4 fl Normal 80.0-96.0 Mean Corpuscular Hemoglobin 30.0 pg Normal 27.0-33.0 Mean Corpuscular HGB Conc 32.8 g/dL Normal 32.0-36.5 Red Cell Distribution Width 12.5 % Normal 11.5-14.5 Platelet Count, Automated 223 10 Normal 150-450 Neutrophils % 47.9 % Normal 36.0-66.0 Lymph % 36.5 % Normal 24.0-44.0 Potter % 10.5 % High 0.0-5.0 Eos % 2.7 % Normal 0.0-3.0 Baso % 1.6 % High 0.0-1.0 Immature Granulocyte % 0.8 % Normal 0-3.0 Nucleated Red Blood Cell % 0.0 % Normal 0-0 Neutrophils # 3.0 10 Normal 1.5-8.5 Lymph # 2.3 10 Normal 1.5-5.0 Potter # 0.7 10 Normal 0.0-0.8 Eos # 0.2 10 Normal 0.0-0.5 Baso # 0.1 10 Normal 0.0-0.2 Hemoglobin A1c 04/08/[address] [id number] [phone] Hemoglobin A1c 5.9 % Normal 2 Estimated Average Glucose 123 mg/dL High 60-110 FT4&TSH Panel 04/08/[address] [address] [phone] Thyroid Stimulating Hormone 1.910 uIU/ML Normal 0. 358-3.740 Free T4 0.85 ng/dL Normal 0.76-1.46 1 Units are mL/min/1.73 m2 Chronic Kidney Disease Staging per NKF: Stage I & II GFR >=60 Normal to Mildly Decreased Stage III GFR 30-59 Moderately Decreased Stage IV GFR 15-29 Severely Decreased Stage V GFR <15 Very Little GFR Left ESRD GFR <15 on HYDRAULIC MODELING ENGINEER 2 REFERENCE RANGES: <=5.6% NORMAL 5.7-6.4% SUGGESTS IMPAIRED GLUCOSE META BOLISM/PREDIABETIC >= 6.5% ABNORMAL Procedures Date Code Description Status 10/13/2019 [id number] Mammogram Completed 09/24/2018 [id number] Mammogram Completed 09/18/2017 [id number] Mammogram Completed Medical Devices Description No Information Available Encounters Type Date Location Provider Dx Diagnosis Office Visit 04/12/2020 11:00a [facility] MIRLANDE Meyers Z00.00 Encntr for general adult med ical exam w/o abnormal findings I10 Essential (primary) hyperten simone E78.00 Pure hypercholesterolemia, u nspecified I35.8 Other nonrheumatic aortic va lve disorders K21.9 Gastro-esophageal reflux dis ease without esophagitis Office Visit 10/13/2019 11:20a [facility] Kelly Jones, D.O. I10 Essential (primary) hyperten simone E78.00 Pure hypercholesterolemia, u nspecified I35.8 Other nonrheumatic aortic va lve disorders K21.9 Gastro-esophageal reflux dis ease without esophagitis E66.09 Other obesity due to excess calories Z68.33 Body mass index (BMI) 33.0-3 3.9, adult R73.03 Prediabetes Z12.31 Encntr screen mammogram for malignant neoplasm of breast M62.830 Muscle spasm of back Assessments Date Code Description Provider 04/12/2020 Z00.00 Encounter for genera l adult medical examination without abnormal findings MIRLANDE Meyers 04/12/2020 I10 Essential (primary) hypertension MIRLANDE Meyers 04/12/2020 E78.00 Pure hypercholesterolemia, unspe cified MIRLANDE Meyers 04/12/2020 I35.8 Other nonrheumatic aortic valve disorders MIRLANDE Meyers 04/12/2020 K21.9 Gastro-esophageal reflux disease without esophagitis MIRLANDE Meyers 10/13/2019 I10 Essential (primary) hypertension Kelly Jones, D.O. 10/13/2019 E78.00 Pure hypercholesterolemia, unspe cified Kelly Jones, D.O. 10/13/2019 I35.8 Other nonrheumatic aortic valve disorders Kelly Jones, D.O. 10/13/2019 K21.9 Gastro-esophageal reflux disease without esophagitis Kelly Jones, D.O. 10/13/2019 E66.09 Other obesity due to excess martine clem Dada SolitarioORupinder 10/13/2019 Z68.33 Body mass index (BMI) 33.0-33.9, adult Kelly Jones D.O. 10/13/2019 R73.03 Prediabetes Kelly quinn D.O. 10/13/2019 Z12.31 Encounter for screen ing mammogram for malignant neoplasm of breast Kelly Jones D.O. 10/13/2019 M62.830 Muscle spasm of back Kelly Castañeda D.O. Plan of Treatment Future Appointment(s):* 10/11/2020 11:00 am - Kelly Jones D.O. at [facility] 04/12/2020 - MIRLANDE Meyers* Z00.00 Encounter for general adult medical examination without abnormal findings* Follow up:* [address] Nguyen. * I10 Essential (primary) hypertension* New Medication:* Losartan Potassium/Hydrochlorothiazide 100-12.5 mg - Take One Tablet By Mouth Every Day * New Labs:* Comprehensive Metabolic Profil, Scheduled: 10/11/20 * FT4&TSH Panel, Scheduled: 10/11/20 * Lipid Panel, Scheduled: 10/11/20 * Comments:* Blood pressure not well controlled today. Start checking your blood pressures at home, and call if consistently over 140/90. We will change medications today. * E78.00 Pure hypercholesterolemia, unspecified* Comments:* Your lipids are well controlled currently. Continue crestor as prescribed, but consider taking it only 3 days a week to see if this changes your muscle aches. * I35.8 Other nonrheumatic aortic valve disorders* Comments:* We will monitor for now, and repeat an echo if there is any change. * K21.9 Gastro-esophageal reflux disease without esophagitis* New Labs:* CBC With Differential, Scheduled: 10/11/20 * Hemoglobin A1c, Scheduled: 10/11/20 * Comments:* Stable with current therapy. Functional Status Description No Information Available Mental Status Description No Information Available Referrals Refer to Reason for Referral Status Appt Date Gian Madrid MD has requested your off ice for treatment of her cataract Sent [facility] [address], [address] [place] [address] [phone]
--- OUTSIDE RECORDS SUMMARY | 2020-06-13 09:40 | CCD | Continuity of Care Document ---
Author Author Karyna MCNEAL PA Organization Unknown Address [address] [facility] [address] [place] [address] Phone [phone] Care Team Providers Care Bending Machine Set Up Operator Name Role Phone Kelly Jones D.O. AUTM Gian Madrid MD AUTM [phone] Problems Active Problems Provider Date Pure hypercholesterolemia [...] F O2 % BldC Oximetry 96 % [place] Body Weight 110 lb 10/13/2019 11:29am BP Systolic 136 mmHg BP Diastolic 84 mmHg Height 62.50 inches 5'2.50" Weight 187.00 lb BMI (Body Mass Index) 33.7 kg/m2 Heart Rate 73 /min Respiratory Rate 18 /min Body Temperature 98.1 F O2 % BldC Oximetry 97 % [place] Body Weight 110 lb Results Test Acquired Date Facility Test Result H/L Range Note Comprehensive Metabolic Profil 04/08/[address] [address] [phone] Glucose, Fasting 106 mg/dL High 70-100 Blood [...] Ratio 1.4 Normal 1.2-2.2 Lipid Panel 04/08/2020 [facility] [address] [place] [address] [phone] Triglycerides Level 132 mg/dL Normal <150 Cholesterol Level 162 mg/dL Normal <200 HDL Cholesterol 54 mg/dL Normal >40 LDL Cholesterol 82 mg/dL Normal <100 Non-HDL-C 108 mg/dL Normal Cholesterol Risk Ratio 3.000 Normal <5 CBC With Differential 04/08/[address] [address] [phone] White Blood Count 6.3 10 Normal 4.0-10.0 [...] 36.0-66.0 Lymph % 36.5 % Normal 24.0-44.0 [place] % 10.5 % High 0.0-5.0 Eos % 2.7 % Normal 0.0-3.0 Baso % 1.6 % High 0.0-1.0 Immature Granulocyte % 0.8 % Normal 0-3.0 Nucleated Red Blood Cell % 0.0 % Normal 0-0 Neutrophils # 3.0 10 Normal 1.5-8.5 Lymph # 2.3 10 Normal 1.5-5.0 [place] # 0.7 10 Normal 0.0-0.8 Eos # 0.2 10 Normal 0.0-0.5 Baso # 0.1 10 Normal 0.0-0.2 Hemoglobin A1c 04/08/[address] [id number] [phone] Hemoglobin A1c 5.9 % Normal 2 Estimated Average Glucose 123 mg/dL High 60-110 FT4&TSH Panel 04/08/[address] [address] [phone] Thyroid Stimulating Hormone 1.910 uIU/ML Normal 0. 358-3.740 Free T4 0.85 ng/dL Normal 0.76-1.46 1 Units are mL/min/1.73 m2 Chronic Kidney Disease Staging per NKF: Stage I & II GFR >=60 Normal to Mildly Decreased Stage III GFR 30-59 Moderately Decreased Stage IV GFR 15-29 Severely Decreased Stage V GFR <15 Very Little GFR Left ESRD GFR <15 on RN ADMISSION 2 REFERENCE RANGES: <=5.6% NORMAL 5.7-6.4% SUGGESTS IMPAIRED GLUCOSE META BOLISM/PREDIABETIC >= 6.5% ABNORMAL Procedures Date Code Description Status 10/13/2019 [id number] Mammogram Completed 09/24/2018 [id number] Mammogram Completed 09/18/2017 [id number] Mammogram Completed Medical Devices Description No Information Available Encounters Type Date Location Provider Dx Diagnosis Office Visit 10/13/2019 11:20a [facility] Kelly Jones D.O. I10 Essential (primary) hyperten simone E78.00 [...] Meyers 10/13/2019 I10 Essential (primary) hypertension Kelly Jones D.O. 10/13/2019 E78.00 Pure hypercholesterolemia, unspe cified Kelly Jones D.O. 10/13/2019 I35.8 Other nonrheumatic aortic valve disorders Kelly Jones D.O. 10/13/2019 K21.9 Gastro-esophageal reflux disease without esophagitis Kelly Jones D.O. 10/13/2019 E66.09 Other obesity due to excess martine clem Kelly Jones D.O. 10/13/2019 Z68.33 Body mass index (BMI) 33.0-33.9, adult Kelly Jones D.O. 10/13/2019 R73.03 Prediabetes Kelly quinn D.O. 10/13/2019 Z12.31 Encounter for screen ing mammogram for malignant neoplasm of breast Kelly Jones D.O. 10/13/2019 M62.830 Muscle spasm of back Kelly Castañeda D.O. Plan of Treatment Future Appointment(s):* 10/11/2020 11:00 am - Kelly Jones D.O. at [facility] 04/12/2020 - MIRLANDE Meyers* Z00.00 Encounter for [...] aches. * I35.8 Other nonrheumatic aortic valve disorders * K21.9 Gastro-esophageal reflux disease without esophagitis* New Labs:* CBC With Differential, Scheduled: 10/11/20 * Hemoglobin A1c, Scheduled: 10/11/20 Functional Status Description No Information Available Mental Status Description No Information Available Referrals Refer to Reason for Referral Status Appt Date Gian Madrid MD has requested your off ice for treatment of her cataract Sent [address], [address] [place] [id number] [phone]
--- OUTSIDE RECORDS SUMMARY | 2020-06-13 09:41 | CCD ---
Author Author [facility] Organization [facility] Address Unknown Phone Unavailable Care Team Providers Care Manager Dental Name Role Phone Jakob, Joe PA Unavailable Unavailable Jakob, Joe PA Unavailable Unavailable Jakob, Joe PA Unavailable Unavailable Jakob, Joe PA Unavailable Unavailable Jakob, Joe PA Unavailable Unavailable Jakob, Joe PA Unavailable Unavailable Jakob, Joe PA Unavailable Unavailable Jakob, Joe PA Unavailable Unavailable Jakob, Joe PA Unavailable Unavailable Jakob, Joe PA Unavailable Unavailable Jakob, Joe PA Unavailable Unavailable Jakob, Joe PA Unavailable Unavailable Jakob, Joe PA Unavailable Unavailable Jakob, Joe PA Unavailable Unavailable Jakob, Joe PA Unavailable Unavailable Jakob, Joe PA Unavailable Unavailable Jakob, Joe PA Unavailable Unavailable Jakob, Joe PA Unavailable Unavailable Jakob, Joe PA Unavailable Unavailable Jakob, Joe PA Unavailable Unavailable Jakob, Joe PA Unavailable Unavailable Jakob, Joe PA Unavailable Unavailable Jakob, Joe PA Unavailable Unavailable Jakob, Joe PA Unavailable Unavailable Jakob, Joe PA Unavailable Unavailable Jakob, Joe PA Unavailable Unavailable Jakob, Joe PA Unavailable Unavailable Jakob, Joe PA Unavailable Unavailable Jakob, Joe PA Unavailable Unavailable Jakob, Joe PA Unavailable Unavailable Jakob, Joe PA Unavailable Unavailable Jakob, Joe PA Unavailable Unavailable Jakob, Joe PA Unavailable Unavailable Jakob, Joe PA Unavailable Unavailable Jakob, Joe PA Unavailable Unavailable Jakob, Joe PA Unavailable Unavailable Jakob, Joe PA Unavailable Unavailable Jakob, Joe PA Unavailable Unavailable Jakob, Joe PA Unavailable Unavailable Jakob, Joe PA Unavailable Unavailable Jakob, Joe PA Unavailable Unavailable Jakob, Joe PA Unavailable Unavailable Jakob, Joe PA Unavailable Unavailable Jakob, Joe PA Unavailable Unavailable Jakob, Joe PA Unavailable Unavailable Jakob, Joe PA Unavailable Unavailable Jakob, Joe PA Unavailable Unavailable Jakob, Joe PA Unavailable Unavailable Jakob, Joe PA Unavailable Unavailable MICHAEL-DESIRE, WILLA DO Unavailable Unavailable MICHAEL-DESIRE, WILLA DO Unavailable Unavailable MICHAEL-DESIRE, WILLA DO Unavailable Unavailable MICHAEL-DESIRE, WILLA DO Unavailable Unavailable MICHAEL-DESIRE, WILLA DO Unavailable Unavailable MICHAEL-DESIRE, WILLA DO Unavailable Unavailable MICHAEL-DESIRE, WILLA DO Unavailable Unavailable MICAHEL-DESIRE, WILLA DO Unavailable Unavailable MICHAEL-DESIRE, WILLA DO Unavailable Unavailable MICHAEL-DESIRE, WILLA DO Unavailable Unavailable MICHAEL-DESIRE, WILLA DO Unavailable Unavailable MICHAEL-DESIRE, WILLA DO Unavailable Unavailable MICHAEL-DESIRE, WILLA DO Unavailable Unavailable MICHAEL-DESIRE, WILLA DO Unavailable Unavailable MICHAEL-DESIRE, WILLA DO Unavailable Unavailable MICHAEL-DESIRE, WILLA DO Unavailable Unavailable MICHAEL-DESIRE, WILLA DO Unavailable Unavailable MICHAEL-DESIRE, WILLA DO Unavailable Unavailable MICHAEL-DESIRE, WILLA DO Unavailable Unavailable MICHAEL-DESIRE, WILLA DO Unavailable Unavailable MICHAEL-DESIRE, WILLA DO Unavailable Unavailable MICHAEL-DESIRE, WILLA DO Unavailable Unavailable MICHAEL-DESIRE, WILLA DO Unavailable Unavailable MICHAEL-DESIRE, WILLA DO Unavailable Unavailable MICHAEL-DESIRE, WILLA DO Unavailable Unavailable MICHAEL-DESIRE, WILLA DO Unavailable Unavailable MICHAEL-DESIRE, WILLA DO Unavailable Unavailable MICHAEL-DESIRE, WILLA DO Unavailable Unavailable MICHAEL-DESIRE, WILLA DO Unavailable Unavailable MICHAEL-DESIRE, WILLA DO Unavailable Unavailable MICHAEL-DESIRE, WILLA DO Unavailable Unavailable MICHAEL-DESIRE, WILLA DO Unavailable Unavailable MICHAEL-DESIRE, WILLA DO Unavailable Unavailable MICHAEL-DESIRE, WILLA DO Unavailable Unavailable MICHAEL-DESIRE, WILLA DO Unavailable Unavailable MICHAEL-DESIRE, WILLA DO Unavailable Unavailable MICHAEL-DESIRE, WILLA DO Unavailable Unavailable MICHAEL-DESIRE, WILLA DO Unavailable Unavailable MICHAEL-DESIRE, WILLA DO Unavailable Unavailable MICHAEL-DESIRE, WILLA DO Unavailable Unavailable MICHAEL-DESIRE, WILLA DO Unavailable Unavailable MICHAEL-DESIRE, WILLA DO Unavailable Unavailable MICHAEL-DESIRE, WILLA DO Unavailable Unavailable MICHAEL-DESIRE, WILLA DO Unavailable Unavailable MICHAEL-DESIRE, WILLA DO Unavailable Unavailable MICHAEL-DESIRE, WILLA DO Unavailable Unavailable MICHAEL-DESIRE, WILLA DO Unavailable Unavailable MICHAEL-DESIRE, WILLA DO Unavailable Unavailable MICHAEL-DESIRE, WILLA DO Unavailable Unavailable MICHAEL-DESIRE, WILLA DO Unavailable Unavailable MICHAEL-DESIRE, WILLA DO Unavailable Unavailable MICHAEL-DESIRE, WILLA DO Unavailable Unavailable MICHAEL-DESIRE, WILLA DO Unavailable Unavailable MICHAEL-DESIRE, WILLA DO Unavailable Unavailable MICHAEL-DESIRE, WILLA DO Unavailable Unavailable MICHAEL-DESIRE, WILLA DO Unavailable Unavailable MICHAEL-DESIRE, WILLA DO Unavailable Unavailable MICHAEL-DESIRE, WILLA DO Unavailable Unavailable MICHAEL-DESIRE, WILLA DO Unavailable Unavailable MICHAEL-DESIRE, WILLA DO Unavailable Unavailable MICHAEL-DESIRE, WILLA DO Unavailable Unavailable MICHAEL-DESIRE, WILLA DO Unavailable Unavailable MICHAEL-DESIRE, WILLA DO Unavailable Unavailable MICHAEL-DESIRE, WILLA DO Unavailable Unavailable MICHAEL-DESIRE, WILLA DO Unavailable Unavailable MICHAEL-DESIRE, WILLA DO Unavailable Unavailable MICHAEL-DESIRE, WILLA DO Unavailable Unavailable MICHAEL-DESIRE, WILLA DO Unavailable Unavailable MICHAEL-DESIRE, WILLA DO Unavailable Unavailable MICHAEL-DESIRE, WILLA DO Unavailable Unavailable MICHAEL-DESIRE, WILLA DO Unavailable Unavailable MICHAEL-DESIRE, WILLA DO Unavailable Unavailable MICHAEL-EDSIRE, WILLA DO Unavailable Unavailable MICHAEL-DESIRE, WILLA DO Unavailable Unavailable MICHAEL-DESIRE, WILLA DO Unavailable Unavailable MICHAEL-DESIRE, WILLA DO Unavailable Unavailable MICHAEL-DESIRE, WILLA DO Unavailable Unavailable MICHAEL-DESIRE, WILLA DO Unavailable Unavailable MICHAEL-DESIRE, WILLA DO Unavailable Unavailable MICHAEL-DESIRE, WILLA DO Unavailable Unavailable MICHAEL-DESIRE, WILLA DO Unavailable Unavailable MICHAEL-DESIRE, WILLA DO Unavailable Unavailable Teressa IZAGUIRREEW DO Unavailable [phone] Teressa IZAGUIRRE KIM DO Unavailable [phone] Teressa IZAGUIRRE KIM DO Unavailable [phone] Teressa IZAGUIRRE KIM DO Unavailable [phone] Teressa IZAGUIRRE KIM DO Unavailable [phone] Teressa IZAGUIRRE KIM DO Unavailable [phone] Teressa IZAGUIRRE KIM DO Unavailable [phone] Teressa IZAGUIRREEW DO Unavailable [phone] Teressa IZAGUIRRE KIM DO Unavailable [phone] Teressa IZAGUIRREEW DO Unavailable [phone] Teressa IZAGUIRREEW DO Unavailable [phone] Teressa IZAGUIRRE KIM DO Unavailable [phone] Teressa IZAGUIRRE KIM DO Unavailable [phone] Teressa IZAGUIRRE KIM DO Unavailable [phone] Teressa IZAGUIRRE KIM DO Unavailable [phone] Teressa IZAGUIRRE KIM DO Unavailable [phone] Teressa IZAGUIRRE KIM DO Unavailable [phone] Teressa IZAGUIRRE KIM DO Unavailable [phone] Teressa IZAGUIRRE KIM DO Unavailable [phone] Teressa IZAGUIRRE DO Unavailable [phone] Teressa IZAGUIRRE DO Unavailable [phone] Re-disclosure Warning The records that you are about to access may contain information from federally-assisted alcohol or drug abuse programs. If such information is present, then the following federally mandated warning applies: This information has been disclosed to you from records protected by federal confidentiality rules (42 CFR part 2). The federal rules prohibit you from making any further disclosure of this information unless further disclosure is expressly permitted by the written consent of the person to whom it pertains or as otherwise permitted by 42 CFR part 2. A general authorization for the release of medical or other information is NOT sufficient for this purpose. The Federal rules restrict any use of the information to criminally investigate or prosecute any alcohol or drug abuse patient.The records that you are about to access may contain highly sensitive health information, the redisclosure of which is protected by Article 27-F of the [facility] Public Health law. If you continue you may have access to information: Regarding HIV / AIDS; Provided by facilities licensed or operated by the [facility] Office of Mental Health; or Provided by the [facility] Office for People With Developmental Disabilities. If such information is present, then the following [facility] mandated warning applies: This information has been disclosed to you from confidential records which are protected by state law. State law prohibits you from making any further disclosure of this information without the specific written consent of the person to whom it pertains, or as otherwise permitted by law. Any unauthorized further disclosure in violation of state law may result in a fine or nursing home sentence or both. A general authorization for the release of medical or other information is NOT sufficient authorization for further disc losure. Allergies and Adverse Reactions Type Description Substance Reaction Status Data Source(s ) Allergy to substance No Known Allergies No known allergies (situation ) [facility] (Gian Biggs [facility]) Family History Family Member Name Family Member Gender Family Member Status Date o f Status Description Data Source(s) Unknown Unknown Problem [facility] ([facility], [facility]) mgm,mother,maternal aunt #1 Unknown Unknown Problem [facility] ([facility], ) Unknown Female Problem MED[facility] ([facility]) Encounters Encounter Providers Location Date Indications Data Source(s ) Outpatient<td ID="encounterTypeDescripti onID1">1 WK PREOP FOR SURGERY</td><td>Kim Izaguirre DO</td><td>Gian Madrid MD [facility]</td><td>06/01/2020</td><td>12:19PM</td><td>1:22PM</td><td><content ID="encounterDiagnosisID1-0">Cataract Senile Nuclear</content></td> Attender: KIM Beatty MD [facility] 06/01/2020 12:19:00 PM EST - 06/01/2020 01:22:00 PM EST Cataract Senile Nuclear [facility] (Gian burdick MD [facility]) Cataract Senile Nuclear Outpatient<td ID="encounterTypeDescripti onID0">Extracapsular cataract removal w/IOL implant</td><td>Kim Izaguirre DO</td><td>[facility]</td><td>06/06/2020</td><td>06/01/2020 10:50AM</td> <td>7:00AM</td><td></td> Attender: KIM IZAGUIRRE DO [facility] 06/01/2020 10:50:00 AM EST - 06/06/2020 07:00:00 AM EST [facility] (Gian Biggs MD [facility]) Outpatient<td ID="encounterTypeDescripti onID2">NEW PATIENT WITH REFERRAL</td><td>Kim Izaguirre DO</td><td>Gian Madrid MD [facility]</td><td>05/10/2020</td><td>8:29AM</td><td>9:42AM</td><td><content ID="encounterDiagnosisID2-0">Refractive Error - Myopia Degenerative</content>, <content ID="encounterDiagnosisID2-1">Dry Eye Syndrome</content>, <content ID="encounterDiagnosisID2-2">Cataract Senile Cortical</content>, <content ID="encounterDiagnosisID2-3">Cataract Senile Nuclear</content>, <content ID="encounterDiagnosisID2-4">Vitreous Disorders Degeneration</content>, <content ID="encounterDiagnosisID2-5">Glaucoma Open-angle Primary Both Eyes</content></td> Attender: KIM JITENDRA Beatty MD [facility] 05/10/2020 08:29:00 AM EST - 05/10/2020 09:42:00 AM EST Glaucoma Open-angle Primary Both EyesVitreous Disorders DegenerationCataract Senile NuclearCataract Senile CorticalDry Eye SyndromeRefractive Error - Myopia Degenerative [facility] (Gian Biggs MD [facility]) Glaucoma Open-angle Primary Both Eyes Vitreous Disorders Degeneration Cataract Senile Nuclear Cataract Senile Cortical Dry Eye Syndrome Refractive Error - Myopia Degenerative Office Visit Attender: Joe NOGUEIRA [facility] 04/12/2020 10:00:00 AM EST MED[facility] ([facility]) Outpatient 10/26/2019 05:18:00 AM EDT [facility] Radiology Imaging Outpatient Attender: WILLA BURNETTE DO [facility] 10/13/2019 11:20:00 AM EDT MED[facility] ([facility]) Immunizations Vaccine Date Status Description Data Source(s) COVID-19 VACCINE, MRNA, [id number], LNP-S ([employer])/PF 05/28/19 12:00:00 AM EST completed [facility] Medications Medication Brand Name Start Date Product Form Dose Route Admi nistrative Instructions Pharmacy Instructions Status Indications Reaction Description Data Source(s) moxifloxacin 5 MG/ML Ophthalmic Solution 0.5 % MOXIFLOXACIN HCL 06/11/2020 12:00:00 AM EST drops 3 3 DAYS PRIOR TO SURGERY START 1DROP FOUR TIMES A DAY IN THE RIGHT EYE 3 DAYS PRIOR TO SURGERY START 1DROP FOUR TIMES A DAY IN THE RIGHT EYE SOLD: 06/11/2020 [facility] 1 % 06/11/2020 12:00:00 AM EST drops,suspension 2 THE DAY OF SURGERY REMOVE PATCH START 1 DROP TWO TIMES A DAY IN THE RIGHT EYE THE DAY OF SURGERY REMOVE PATCH START 1 DROP TWO TIMES A DAY IN THE RIGHT EYE SOLD: 06/11/2020 [facility] 0.075 % 06/02/2020 12:00:00 AM EST drops 5 THREE DAY PRIOR TO SURGERY START ONE DROP TWO TIMES A DAY IN THE LEFT EYE THREE DAY PRIOR TO SURGERY START ONE DROP TWO TIMES A DAY IN THE LEFT EYE SOLD: 06/02/2020 [facility] moxifloxacin 5 MG/ML Ophthalmic Solution 0.5 % MOXIFLOXACIN HCL 06/01/2020 12:00:00 AM EST drops 3 THREE DAYS PRIOR TO SURGEY START 1 DROP FOUR TIMES A DAY IN THE LEFT EYE THREE DAYS PRIOR TO SURGEY START 1 DROP FOUR TIMES A DAY IN THE LEFT EYE SOLD: 06/02/2020 [facility] moxifloxacin 5 MG/ML Ophthalmic Solution Moxifloxacin HCl 0.5% Ophthalmic Solution Moxifloxacin HCl 0.5% Ophthalmic Solution 06/01/2020 12:00:00 AM EST active moxifloxacin 5 MG/ML Oph thalmic Solution [facility] (Gian Biggs MD [facility]) 1 % 06/01/2020 12:00:00 AM EST drops,suspension 2 THE DAY OF SURGERY REMOVE PATCH START ONE DROP TWO TIMES A DAY IN THE LEFT EYE THE DAY OF SURGERY REMOVE PATCH START ONE DROP TWO TIMES A DAY IN THE LEFT EYE SOLD: 06/02/2020 [facility] 1% Ophthalmic Suspension Inveltys 1% Ophthalmic Kandi pension 06/01/2020 12:00:00 AM EST active loteprednol etabonate 10 MG/ML Ophthalmic Suspension [Inveltys] [facility] (Gian Biggs MD [facility]) BromSite 0.075% Ophthalmic Solution BromSite 0.075% Ophthalm ic Solution 06/01/2020 12:00:00 AM EST active bromfenac 0.75 MG/ML Ophthalmic Solution [Bromsite] [facility] (Gian Biggs MD [facility]) Losartan 100 mg Oral Tablet Losartan 100 mg Oral Tablet 04/29 12:00:00 AM EST 1 active [facility]ian Biggs [facility]) Vitamin D3 3000 MG Oral Tablet Vitamin D3 3000 MG Oral Table t 05/10/2020 12:00:00 AM EST 1 active Vitamin D3 [facility] (Gian Biggs [facility]) Naproxen sodium 220 MG Oral Tablet [Aleve] Aleve 220 M G Oral Tablet Aleve 220 MG Oral Tablet 05/10/2020 12:00:00 AM EST 1 activ e naproxen sodium 220 MG Oral Tablet [Aleve] [facility] (Gian Biggs [facility]) Soothe XP Ophthalmic Solution Soothe XP Ophthalmic Solution 05/10/2020 12:00:00 AM EST active Soothe XP [place] (Gian Biggs MD [facility]) latanoprost 0.05 MG/ML Ophthalmic Soluti on Latanoprost 0.005% Ophthalmic Solution Latanoprost 0.005% Ophthalmic Solution 05/10/2020 12:00:00 AM EST 1 active latanoprost 0.05 MG/ ML Ophthalmic Solution [facility] (Gian Biggs MD [facility]) Rosuvastatin calcium 40 MG Oral Tablet Rosuvastatin Ca lcium 40 MG Oral Tablet Rosuvastatin Calcium 40 MG Oral Tablet 05/10/2020 12:00:00 AM EST 1 active rosuvastatin calcium 40 MG Oral Tablet [facility] (Gian Biggs MD [facility]) Rosuvastatin calcium 40 MG Oral Tablet ROSUVASTATIN CALCIUM 05/02/2020 12:00:00 AM EST tablet 30 TAKE ONE TABLET BY MOUTH AT BEDTIME TAKE ONE TABLET BY MOUTH AT BEDTIME SOLD: 05/04/2020 [facility] Rosuvastatin calcium 40 MG Oral Tablet ROSUVASTATIN CALCIUM 05/02/2020 12:00:00 AM EST tablet 30 TAKE ONE TABLET BY MOUTH AT BEDTIME TAKE ONE TABLET BY MOUTH AT BEDTIME SOLD: 06/07/2020 [facility] Hydrochlorothiazide 12.5 MG / Losartan Potassium 100 M G Oral Tablet Losartan Potassium/Hydrochlorothiazide 04/12/2020 12:00:00 AM EST active [facility] ([facility]) Hydrochlorothiazide 12.5 MG / Losartan Potassium 100 M G Oral Tablet 100-12.5 mg LOSARTAN POTASSIUM/HYDROCHLOROTHIAZIDE 04/12/2020 12:00:00 AM EST tablet 3 0 TAKE ONE TABLET BY MOUTH EVERY DAY TAKE ONE TABLET BY MOUTH EVERY DAY SOLD: 04/12/2020 [facility] 100 mg 01/29/2020 12:00:00 AM EDT tablet 30 TAKE ONE TABLET BY MOUTH EVERY DAY TAKE ONE TABLET BY MOUTH EVERY DAY SOLD: 03/04/2020 [facility] 100 mg 01/29/2020 12:00:00 AM EDT tablet 30 TAKE ONE TABLET BY MOUTH EVERY DAY TAKE ONE TABLET BY MOUTH EVERY DAY SOLD: 05/04/2020 [facility] 100 mg 01/29/2020 12:00:00 AM EDT tablet 30 TAKE ONE TABLET BY MOUTH EVERY DAY TAKE ONE TABLET BY MOUTH EVERY DAY SOLD: 04/07/2020 [facility] 100 mg 01/29/2020 12:00:00 AM EDT tablet 30 TAKE ONE TABLET BY MOUTH EVERY DAY TAKE ONE TABLET BY MOUTH EVERY DAY SOLD: 06/07/2020 [facility] 100 mg 01/29/2020 12:00:00 AM EDT tablet 30 TAKE ONE TABLET BY MOUTH EVERY DAY TAKE ONE TABLET BY MOUTH EVERY DAY SOLD: 02/01/2020 [facility] Rosuvastatin calcium 40 MG Oral Tablet ROSUVASTATIN CALCIUM 10/22/2019 12:00:00 AM EDT tablet 30 TAKE ONE TABLET BY MOUTH AT BEDTIME TAKE ONE TABLET BY MOUTH AT BEDTIME SOLD: 02/01/2020 [facility] Rosuvastatin calcium 40 MG Oral Tablet ROSUVASTATIN CALCIUM 10/22/2019 12:00:00 AM EDT tablet 30 TAKE ONE TABLET BY MOUTH AT BEDTIME TAKE ONE TABLET BY MOUTH AT BEDTIME SOLD: 04/07/2020 [facility] Rosuvastatin calcium 40 MG Oral Tablet ROSUVASTATIN CALCIUM 10/22/2019 12:00:00 AM EDT tablet 30 TAKE ONE TABLET BY MOUTH AT BEDTIME TAKE ONE TABLET BY MOUTH AT BEDTIME SOLD: 03/04/2020 [facility] 40 mg 10/22/2019 12:00:00 AM EDT tablet 30 TAKE ONE TABLET BY MOUTH AT BEDTIME TAKE ONE TABLET BY MOUTH AT BEDTIME SOLD: 10/22/2019 [facility] Rosuvastatin calcium 40 MG Oral Tablet ROSUVASTATIN CALCIUM 10/22/2019 12:00:00 AM EDT tablet 30 TAKE ONE TABLET BY MOUTH AT BEDTIME TAKE ONE TABLET BY MOUTH AT BEDTIME SOLD: 12/28/2019 [facility] Rosuvastatin calcium 40 MG Oral Tablet ROSUVASTATIN CALCIUM 10/22/2019 12:00:00 AM EDT tablet 30 TAKE ONE TABLET BY MOUTH AT BEDTIME TAKE ONE TABLET BY MOUTH AT BEDTIME SOLD: 11/26/2019 [facility] Cyclobenzaprine hydrochloride 5 MG Oral Tablet Cyclobenzapri ne HCL 10/13/2019 12:00:00 AM EDT ORAL active M CARMELO ([facility]) Cholecalciferol 2000 UNT Oral Tablet Vitamin D3 10/13/2019 12:00:00 A M EDT active [facility] ([facility]) Cyclobenzaprine hydrochloride 5 MG Oral Tablet CYCLOBENZAPRI NE HCL 10/13/2019 12:00:00 AM EDT tablet 90 TAKE ONE TABLET BY MOUTH AT BEDTIME NEEDED TAKE ONE TABLET BY MOUTH AT BEDTIME NEEDED SOLD: 10/13/2019 [facility] 50 mcg (2,000 unit) 10/13/2019 12:00:00 AM EDT tablet 90 TAKE ONE TABLET BY MOUTH EVERY DAY TAKE ONE TABLET BY MOUTH EVERY DAY SOLD: 05/25/2020 [facility] 50 mcg (2,000 unit) 10/13/2019 12:00:00 AM EDT tablet 90 TAKE ONE TABLET BY MOUTH EVERY DAY TAKE ONE TABLET BY MOUTH EVERY DAY SOLD: 10/13/2019 [facility] 100 mg 07/16/2019 12:00:00 AM EDT tablet 30 TAKE ONE TABLET BY MOUTH EVERY DAY TAKE ONE TABLET BY MOUTH EVERY DAY SOLD: 10/22/2019 [facility] 100 mg 07/16/2019 12:00:00 AM EDT tablet 30 TAKE ONE TABLET BY MOUTH EVERY DAY TAKE ONE TABLET BY MOUTH EVERY DAY SOLD: 09/20/2019 [facility] 100 mg 07/16/2019 12:00:00 AM EDT tablet 30 TAKE ONE TABLET BY MOUTH EVERY DAY TAKE ONE TABLET BY MOUTH EVERY DAY SOLD: 07/17/2019 [facility] 100 mg 07/16/2019 12:00:00 AM EDT tablet 30 TAKE ONE TABLET BY MOUTH EVERY DAY TAKE ONE TABLET BY MOUTH EVERY DAY SOLD: 08/19/2019 [facility] 100 mg 07/16/2019 12:00:00 AM EDT tablet 30 TAKE ONE TABLET BY MOUTH EVERY DAY TAKE ONE TABLET BY MOUTH EVERY DAY SOLD: 11/26/2019 [facility] 100 mg 07/16/2019 12:00:00 AM EDT tablet 30 TAKE ONE TABLET BY MOUTH EVERY DAY TAKE ONE TABLET BY MOUTH EVERY DAY SOLD: 12/28/2019 [facility] 50 mcg (2,000 unit) 05/18/2019 12:00:00 AM EST capsule 90 TAKE ONE CAPSULE BY MOUTH EVERY DAY TAKE ONE CAPSULE BY MOUTH EVERY DAY SOLD: 05/19/2019 [facility] 40 mg 04/13/2019 12:00:00 AM EST tablet 30 TAKE ONE TABLET BY MOUTH AT BEDTIME TAKE ONE TABLET BY MOUTH AT BEDTIME SOLD: 09/20/2019 [facility] 40 mg 04/13/2019 12:00:00 AM EST tablet 30 TAKE ONE TABLET BY MOUTH AT BEDTIME TAKE ONE TABLET BY MOUTH AT BEDTIME SOLD: 08/19/2019 [facility] 40 mg 04/13/2019 12:00:00 AM EST tablet 30 TAKE ONE TABLET BY MOUTH AT BEDTIME TAKE ONE TABLET BY MOUTH AT BEDTIME SOLD: 05/18/2019 [facility] 40 mg 04/13/2019 12:00:00 AM EST tablet 30 TAKE ONE TABLET BY MOUTH AT BEDTIME TAKE ONE TABLET BY MOUTH AT BEDTIME SOLD: 04/16/2019 [facility] 40 mg 04/13/2019 12:00:00 AM EST tablet 30 TAKE ONE TABLET BY MOUTH AT BEDTIME TAKE ONE TABLET BY MOUTH AT BEDTIME SOLD: 06/19/2019 [facility] 40 mg 04/13/2019 12:00:00 AM EST tablet 30 TAKE ONE TABLET BY MOUTH AT BEDTIME TAKE ONE TABLET BY MOUTH AT BEDTIME SOLD: 07/17/2019 [facility] 0.005 % 03/27/2019 12:00:00 AM EST drops 7 INSTILL ONE DROP INTO BOTH EYES EVERY EVENING INSTILL ONE DROP INTO BOTH EYES EVERY EVENING SOLD: 11/09/2019 [facility] 0.005 % 03/27/2019 12:00:00 AM EST drops 7 INSTILL ONE DROP INTO BOTH EYES EVERY EVENING INSTILL ONE DROP INTO BOTH EYES EVERY EVENING SOLD: 07/13/2019 [facility] 100 mg 01/01/2019 12:00:00 AM EDT tablet 30 TAKE ONE TABLET BY MOUTH EVERY DAY TAKE ONE TABLET BY MOUTH EVERY DAY SOLD: 05/18/2019 [facility] Losartan Potassium 100 MG Oral Tablet LOSARTAN POTASSIUM 12:00:00 AM EDT tablet 30 TAKE ONE TABLET BY MOUTH JAI RY DAY TAKE ONE TABLET BY MOUTH EVERY DAY SOLD: 06/19/2019 [facility] 100 mg 01/01/2019 12:00:00 AM EDT tablet 30 TAKE ONE TABLET BY MOUTH EVERY DAY TAKE ONE TABLET BY MOUTH EVERY DAY SOLD: 04/16/2019 [facility] Insurance Providers Payer name Policy type / Coverage type Policy ID Covered alliance party ID Covered alliance party's relationship to morales Policy Morales Plan Information [facility] [id number] [facility] [id number] MEDICARE [id number] SP [id number] UMR [facility] [id number] HU2 [id number] [employer] [place] Other 0 Family Dep penn state healthsol [place] 0 Medicare Part B [facility] Other 0 Se lf 0 MEDICARE [id number] SP [id number] T [employer] [id number] HU2 [id number] SELF PAY SP UMR O [id number] S [id number] MEDICARE C [id number] S [id number] UMR [facility] [id number] SP [id number] ANSI-Not a Secondary Insurance [id number] ANSI-Medicare Part B [id number] ANSI-Commercial [id number] Umr Medigap Part B [id number] Self [id number] [employer] Medigap Part B [id number] Self [id number] Medicare [place] Primary [id number] Self [id number] UMR [facility] CARE [id number] HU2 [id number] MEDICARE [id number] SP [id number] [id number] Umr/Uhc/[employer] Medigap Part B [id number] Family Dependent [id number] Medicare Natl Gov't Servi Medicare Primary [id number] Self [id number] Umr Commercial [id number] [id number] Medicare [facility] Medicare Primary [id number] Self [id number] UMR [facility] CARE [id number] HU2 [id number] Umr Medigap Part B [id number] Self [id number] [employer] Medigap Part B [id number] Self [id number] [place] Primary [id number] Self [id number] [employer] [id number] [id number] MEDICARE [id number] SP [id number] A [employer]OM[employer] [id number] HU2 [id number] [employer] Medigap Part B [id number] Self [id number] Medicare [place] Medicare Primary [id number] Self [id number] [employer] Medigap Part B [id number] Family Dependent [id number] Medicare [place] Medicare Primary [id number] Self [id number] MEDICARE [id number] SP [id number] A [place] Medigap Part B [id number] Family Dependent [id number] [place] Medicare Primary [id number] Self [id number] [place] Med[place] Part B [id number] Self [id number] [place] Medicare Primary [id number] Self [id number] [place] Med[place] Part B [id number] Self [id number] Medicare [place] Medicare Primary [id number] Self [id number] POMCO [id number] [id number] MEDICARE C [id number] S [id number] A POMCO PPO O [id number] S [id number] MEDICARE C [id number] S [id number] T [place] Medigap Part B [id number] Self [id number] [place] Primary [id number] Self [id number] [place] Med[place]ap Part B [id number] Family Dependent [id number] Medicare [place] Gov't Serv[place] Medicare Primary [id number] Self [id number] [place] Med[place]ap Part B Self [place] Primary Self [place] Med[place]ap Part B [id number] Family Dependent 910 Medicare [place] Medicare Primary Self [place] Med[place]ap Part B Family Dependent Medicare [place] Gov't Servi Medicare Primary Self [facility] P UNAVAILABLE C UNAVAILABLE [id number] Problems, Conditions, and Diagnoses Code Display Name Description Problem Type Effective Dates Data Source(s) 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) 375.15 Dry Eye Syndrome Dry Eye Syndrome Problem 05/10/2020 12 :00:00 AM CARIDAD HENSON (Gian Biggs MD [facility]) 366.16 Cataract Senile Nuclear Cataract Senile Nuclear Proble m 05/10/2020 12:00:00 AM EST SIXTO (Gian Biggs MD 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) 366.15 Cataract Senile Cortical Cataract Senile Cortical Prob valery 05/10/2020 12:00:00 AM EST SIX[place] (Gian Biggs MD [facility]) H40.1134 Glaucoma Open-angle Primary Glaucoma Open-angle Primar y Problem 05/10/2020 12:00:00 AM EST S[facility] (Gian Biggs MD [facility]) H40.1131 Glaucoma Open-angle Primary Both Eyes Gl aucoma Open-angle Primary Both Eyes Problem 05/10/2020 12:00:00 AM EST [place]IX[place] (Marko Biggs MD [facility]) Surgeries/Procedures Procedure Description Date Indications Data Source(s) OPH BMTRY PRTL COHER INTRFRMTRY IO LENS PWR DEEPAK Ophtha lmic biometry - IOL Master with IOL calculation (Left side, WAIVER OF LIABILITY ON FILE (ABN)) 06/01/2020 12:00:00 AM EST SIX[place] (Gian Biggs MD [facility]) Intermediate Eye Exam Established Patient (Signi/Sep E aime. & Man.) Intermediate Eye Exam Established Patient (Signi/Sep Eval. & Man.) 06/01/2020 12:00:00 AM EST [facility] (Gian Biggs MD [facility]) Surgical / procedural history Appendect susan 1963, Tonsillectomy 1964, Bladder lift 2009 Surgical / procedural history Appendect susan 1963, Tonsillectomy 1964, Bladder lift 2010 05/10/2020 12:00:00 AM EST [place] (Marko Biggs MD [facility]) Medical Eye Exam Medical Eye Exam 05/10/2020 12:00:00 AM EST [place] (Gian Biggs MD [facility]) Mammography (procedure) 10/13/2019 12:00:00 AM EDT [facility] ([facility]) Results ID Date Data Source [id number] 06/08/2020 10:00:00 AM EST [facility] Name Value Range Interpretation Code Description Data Tia rce(s) Supporting Document(s) SARS coronavirus 2 RNA Not Detected [facility] [place] This lab was ordered by [facility] and reported by [facility]. ID Date Data Source [id number] 06/01/2020 12:05:00 PM EST [facility] Name Value Range Interpretation Code Description Data Tia rce(s) Supporting Document(s) SARS coronavirus 2 RNA Not Detected [facility] [place] This lab was ordered by [facility] and reported by [facility]. ID Date Data Source [id number] 04/08/2020 10:02:00 AM EST [facility] ([facility]) Name Value Range Interpretation Code Description Data Tia rce(s) Supporting Document(s) Free T4 0.85 ng/dL 0.76-1.46 Normal (applies to non-numeric resul ts) [facility]) Thyroid Stimulating Hormone 1.910 uIU/ML 0.358-3.740 Norm al (applies to non- numeric results) [facility] ([facility]) ID Date Data Source [id number] 04/08/2020 10:02:00 AM EST [facility] ([facility]) Name Value Range Interpretation Code Description Data Tia rce(s) Supporting Document(s) Estimated Average Glucose 123 mg/dL 60-110 Above high normal [facility] ([facility]) Hemoglobin A1c 5.9 % Normal (applies to non-numeric r esults) [facility] ([facility]) <content>REFERENCE RANGES:</content><br/ ><content></content>
<content><=5.6% NORMAL</content>
<content>5.7-6.4% SUGGESTS IMPAIRED GLUCOSE METABOLISM/PREDIABETIC</content>
<content>>= 6.5% ABNORMAL</content>
<content></content> ID Date Data Source [id number] 04/08/2020 10:02:00 AM EST [facility] ([facility]) Name Value Range Interpretation Code Description Data Tia rce(s) Supporting Document(s) White Blood Count 6.3 10 4.0-10.0 Normal (applies to non-numeri c results) [facility] ([facility]) Red Blood Count 4.40 10 4.00-5.40 Normal (applies to non-numeric results) [facility] ([facility]) Hemoglobin 13.2 g/dL 12.0-15.5 Normal (applies to non-numeric resul ts) [facility] ([facility]) Mean Corpuscular Volume 91.4 fl 80.0-96.0 Normal ( applies to non-numeric results) [facility] ([facility]) Hematocrit 40.2 % 36.0-47.0 Normal (applies to non-numeric resul ts) [facility] ([facility]) Mean Corpuscular Hemoglobin 30.0 pg 27.0-33.0 Norm al (applies to non-numeric results) [facility] ([facility]) Mean Corpuscular HGB Conc 32.8 g/dL 32.0-36.5 Normal (applies to non-numeric results) [facility] ([facility]) Red Cell Distribution Width 12.5 % 11.5-14.5 Norm al (applies to non-numeric results) [facility] ([facility]) Platelet Count, Automated 223 10 150-450 Normal (applies to non-numeric results) [facility] ([facility]) Neutrophils % 47.9 % 36.0-66.0 Normal (applies to non-numeric re sults) [facility] ([facility]) Lymph % 36.5 % 24.0-44.0 Normal (applies to non-numeric resul ts) [facility] ([facility]) Eos % 2.7 % 0.0-3.0 Normal (applies to non-numeric resul ts) [facility] ([facility]) [place] % 10.5 % 0.0-5.0 Above high normal [facility] ([facility]) Baso % 1.6 % 0.0-1.0 Above high normal [facility] ([facility]) Nucleated Red Blood Cell % 0.0 % 0-0 Normal (applies to n on-numeric results) [facility] ([facility]) Immature Granulocyte % 0.8 % 0-3.0 Normal (applies to non-n umeric results) [facility] ([facility]) Lymph # 2.3 10 1.5-5.0 Normal (applies to non-numeric resul ts) [facility] ([facility]) Neutrophils # 3.0 10 1.5-8.5 Normal (applies to non-numeric re sults) [facility] ([facility]) Eos # 0.2 10 0.0-0.5 Normal (applies to non-numeric resul ts) [facility] ([facility]) [place] # 0.7 10 0.0-0.8 Normal (applies to non-numeric resul ts) [facility] ([facility]) Baso # 0.1 10 0.0-0.2 Normal (applies to non-numeric resul ts) [facility] ([facility]) ID Date Data Source [id number] 04/08/2020 10:02:00 AM EST [facility] ([facility]) Name Value Range Interpretation Code Description Data Tia rce(s) Supporting Document(s) Triglycerides Level 132 mg/dL Normal (applies to non-nume eulogio results) [facility] ([facility]) Cholesterol Level 162 mg/dL Normal (applies to non-numeri c results) [facility] ([facility]) HDL Cholesterol 54 mg/dL Normal (applies to non-numeric results) [facility] ([facility]) LDL Cholesterol 82 mg/dL Normal (applies to non-numeric results) [facility] ([facility]) Cholesterol Risk Ratio 3.000 Normal (applies to non-n umeric results) [facility] ([facility]) Non-HDL-C 108 mg/dL Normal (applies to non-numeric resul ts) [facility] ([facility]) ID Date Data Source [id number] 04/08/2020 10:02:00 AM EST [facility] ([facility]) Name Value Range Interpretation Code Description Data Tia rce(s) Supporting Document(s) Glucose, Fasting 106 mg/dL 70-100 Above high normal [facility] Creatinine For GFR 0.81 mg/dL 0.55-1.30 Normal (applies to non -numeric results) [facility] ([facility]) Blood Urea Nitrogen 18 mg/dL 7-18 Normal (applies to non-nume eulogio results) [facility] ([facility]) Glomerular Filtration Rate Laboratory test result Normal (applies to non- numeric results) [facility] ([facility]) <content>Units are mL/min/1.73 m2</content>
<content></content>
<content>Chronic Kidney Disease Staging per NKF:</content>
<content></content>
<content>Stage I & II GFR >=60 Normal to Mildly Decreased</content>
<content>Stage III GFR 30- 59 Moderately Decreased</content>
<content>Stage IV GFR 15-29 Severely Decreased</content>
<content>Stage V GFR <15 Very Little GFR Left</content>
<content>ESRD GFR <15 on [employer]</content>
<content></content> Sodium Level 141 meq/L 136-145 Normal (applies to non-numeric res ults) [facility] ([facility]) Potassium Serum 4.2 meq/L 3.5-5.1 Normal (applies to non-numeric results) [facility] ([facility]) Chloride Level 109 meq/L 98-107 Above high normal [facility] ([facility]) Anion Gap 4 meq/L 8-16 Below low normal [facility] ( [facility]) Carbon Dioxide Level 28 meq/L 21-32 Normal (applies to non-num josue results) [facility] ([facility]) Ast/Sgot 14 U/L 7-37 Normal (applies to non-numeric resul ts) [facility] ([facility]) Calcium Level 9.1 mg/dL 8.8-10.2 Normal (applies to non-numeric re sults) [facility] ([facility]) Alt/SGPT 35 U/L 12-78 Normal (applies to non-numeric resul ts) [facility] ([facility]) Alkaline Phosphatase 75 U/L 45-117 Normal (applies to non-num josue results) [facility] ([facility]) Total Protein 6.3 GM/DL 6.4-8.2 Below low normal [facility] ([facility]) Bilirubin,Total 0.5 mg/dL 0.2-1.0 Normal (applies to non-numeric results) [facility] ([facility]) Albumin 3.7 GM/DL 3.2-5.2 Normal (applies to non-numeric resul ts) [facility] ([facility]) Albumin/Globulin Ratio 1.4 1.2-2.2 Normal (applies to non-n umeric results) [facility] ([facility]) ID Date Data Source [id number] 10/12/2019 12:10:00 PM EDT [facility] ([facility]) Name Value Range Interpretation Code Description Data Tia rce(s) Supporting Document(s) Glucose, Fasting 101 mg/dL 70-100 Above high normal [facility] Blood Urea Nitrogen 19 mg/dL 7-18 Above high normal [facility] ([facility]) Sodium Level 140 meq/L 136-145 Normal (applies to non-numeric res ults) [facility] ([facility]) Glomerular Filtration Rate Laboratory test result Normal (applies to non- numeric results) [facility] ([facility]) <content>Units are mL/min/1.73 m2</content>
<content></content>
<content>Chronic Kidney Disease Staging per NKF:</content>
<content></content>
<content>Stage I & II GFR >=60 Normal to Mildly Decreased</content>
<content>Stage III GFR 30- 59 Moderately Decreased</content>
<content>Stage IV GFR 15-29 Severely Decreased</content>
<content>Stage V GFR <15 Very Little GFR Left</content>
<content>ESRD GFR <15 on [employer]</content>
<content></content> Creatinine For GFR 0.86 mg/dL 0.55-1.30 Normal (applies to non -numeric results) [facility] ([facility]) Chloride Level 108 meq/L 98-107 Above high normal [facility] ([facility]) Carbon Dioxide Level 25 meq/L 21-32 Normal (applies to non-num josue results) [facility] ([facility]) Potassium Serum 4.2 meq/L 3.5-5.1 Normal (applies to non-numeric results) [facility] ([facility]) Anion Gap 7 meq/L 8-16 Below low normal [facility] ( [facility]) Calcium Level 9.4 mg/dL 8.8-10.2 Normal (applies to non-numeric re sults) [facility] ([facility]) ID Date Data Source [id number] 10/12/2019 12:10:00 PM EDT [facility]) Name Value Range Interpretation Code Description Data Tia rce(s) Supporting Document(s) Hemoglobin A1c 6.1 % Normal (applies to non-numeric r esults) [facility] ([facility]) REFERENCE RANGES: 4.5-5.6% NORMAL 5.7-6.4% SUGGESTS IMPAIRED GLUCOSE META BOLISM >= 6.5% ABNORMAL Estimated Average Glucose 128 mg/dL 60-110 Above high normal [facility] ([facility]) Procedure Social History Code Duration Value Status Description Data Source(s ) Smoking 05/10/2020 10:02:20 AM EST Ex-smoker (finding) [facility] ed Ex-smoker (finding) [place] (Gian Biggs MD [facility]) Smoking 04/12/2020 12:00:00 AM EST - 04/29/1999 12:00:00 AM EST Patient is a former smoker completed Patient is a former smoker [facility] ([facility]) Vital Signs ID Date Data Source UNK Name Value Range Interpretation Code Description Data Source(s) [place] body weight 110 [lb_av] 110 [lb_av] [facility] ([facility]) Oxygen saturation in Arterial blood by Pulse oximetry 96 % 96 % [facility] ([facility]) Body temperature 96.8 [degF] 96.8 [degF] [facility] ([facility]) Respiratory rate 18 /min 18 /min [facility] ( [facility]) Heart rate 79 /min 79 /min [facility] ([facility]) Body mass index (BMI) [Ratio] 33.7 kg/m2 33.7 k g/m2 [facility] ([facility]) Body weight 187.12 [lb_av] 187.12 [lb_av] [facility] ([facility]) Body height 62.50 [in_i] 62.50 [in_i] [facility] ([facility]) 5'2.50" Diastolic blood pressure 78 mm[Hg] 78 mm[Hg] [facility]) 160/88 recheck Systolic blood pressure 144 mm[Hg] 144 mm[Hg] [facility] ([facility]) 160/88 recheck [place] body weight 110 [lb_av] 110 [lb_av] [facility] ([facility]) Oxygen saturation in Arterial blood by Pulse oximetry 97 % 97 % [facility] ([facility]) Body temperature 98.1 [degF] 98.1 [degF] [facility] ([facility]) Respiratory rate 18 /min 18 /min [facility] ( [facility]) Heart rate 73 /min 73 /min [facility] ([facility]) Body mass index (BMI) [Ratio] 33.7 kg/m2 33.7 k g/m2 [facility] ([facility]) Body weight 187.00 [lb_av] 187.00 [lb_av] [facility] ([facility]) Body height 62.50 [in_i] 62.50 [in_i] [facility] ([facility] 5'2.50" Diastolic blood pressure 84 mm[Hg] 84 mm[Hg] [facility] ([facility]) Systolic blood pressure 136 mm[Hg] 136 mm[Hg] [facility] Patient Treatment Plan of Care Planned Activity Planned Date Details Description Data Source (s) Inveltys 1% Ophthalmic Suspension 06/01/2020 12:00:00 AM EST [facility] (Gian Biggs MD [facility]) BromSite 0.075% Ophthalmic Solution 06/01/2020 12:00:00 AM EST [facility] (Gian Biggs MD [facility]) moxifloxacin 5 MG/ML Ophthalmic Solution 06/01/2020 12:00:00 AM EST [facility] (Gian Biggs MD [facility])
--- OUTSIDE RECORDS SUMMARY | 2020-06-13 09:41 | CCD | Continuity of Care Document ---
Author Author Karyna JONES D.O Organization Unknown Address [address] [place] [address] Phone [phone] Care Team Providers Care Real Estate Paralegal Name Role Phone Kelly Jones D.O. AUTM Problems Active Problems Provider Date Pure hypercholesterolemia [...] is a former smoker Smoking Status Reviewed: 10/13/19 Patient is a former smoker Allergies, Adverse Reactions, Alerts Description No Known Drug Allergies Medications Active Medications SIG Qnty Indications Ordering Provide r Date Vitamin D3 50mcg (1999 [place]) Tablets Take One Capsule By Mouth Every Day 90tabs Dada FranklinORupinder 10/13/2019 Cyclobenzaprine HCL 5mg Tablets take one tablet by mouth every night as needed 90tabs M62.830 Kelly Fuchs D.O. 10/13/2019 Rosuvastatin Calcium 40mg Tablets Take One Tablet By Mouth AT Bedtime 30tabs Kelly Jones D.O. 02/19/[address] 1 by mouth every day as needed. 30caps K21.9 Kelly Jones D.O. 03/26/2017 Losartan Potassium 100mg Tablets Take One Tablet By Mouth Every Day 30tabs I10 Kelly Jones D.O. 03/01/2015 Aleve 220mg Tablets take 1 capsule daily as needed for pain 90tabs M25.50 Kelly Jones D.O. Zantac 150 Maximum Strength 150mg Tablets 1 by mouth once a day Unknown Immunizations Description No Information Available Vital Signs Date Vital Result Comment 10/13/2019 11:29am BP Systolic 136 mmHg BP Diastolic 84 mmHg Height 62.50 inches 5'2.50" Weight 187.00 lb BMI (Body Mass Index) 33.7 kg/m2 Heart Rate 73 /min Respiratory Rate 18 /min Body Temperature 98.1 F O2 % BldC Oximetry 97 % [place] Body Weight 110 lb 03/25/2019 10:54am BP Systolic 136 mmHg BP Diastolic 76 mmHg Height 62.50 inches 5'2.50" Weight 191.12 lb BMI (Body Mass Index) 34.4 kg/m2 Heart Rate 74 /min Respiratory Rate 18 /min Body Temperature 97.8 F O2 % BldC Oximetry 96 % [place] Body Weight 110 lb Results Test Acquired Date Facility Test Result H/L Range Note Comprehensive Metabolic Profil 04/08/[address] [address] [phone] Glucose, Fasting 106 mg/dL High 70-100 Blood [...] Ratio 1.4 Normal 1.2-2.2 Lipid Panel 04/08/2020 [facility] [address] [place] [address] [phone] Triglycerides Level 132 mg/dL Normal <150 Cholesterol Level 162 mg/dL Normal <200 HDL Cholesterol 54 mg/dL Normal >40 LDL Cholesterol 82 mg/dL Normal <100 Non-HDL-C 108 mg/dL Normal Cholesterol Risk Ratio 3.000 Normal <5 CBC With Differential 04/08/[address] [address] [phone] White Blood Count 6.3 10 Normal 4.0-10.0 [...] 36.0-66.0 Lymph % 36.5 % Normal 24.0-44.0 [place] % 10.5 % High 0.0-5.0 Eos % 2.7 % Normal 0.0-3.0 Baso % 1.6 % High 0.0-1.0 Immature Granulocyte % 0.8 % Normal 0-3.0 Nucleated Red Blood Cell % 0.0 % Normal 0-0 Neutrophils # 3.0 10 Normal 1.5-8.5 Lymph # 2.3 10 Normal 1.5-5.0 [place] # 0.7 10 Normal 0.0-0.8 Eos # 0.2 10 Normal 0.0-0.5 Baso # 0.1 10 Normal 0.0-0.2 Hemoglobin A1c 04/08/2020 [facility] [address] [place] [address] [phone] Hemoglobin A1c 5.9 % Normal 2 Estimated Average Glucose 123 mg/dL High 60-110 FT4&TSH Panel 04/08/2020 [facility] [address] [place] [address] [phone] Thyroid Stimulating Hormone 1.910 uIU/ML Normal 0. 358-3.740 Free T4 0.85 ng/dL Normal 0.76-1.46 Hemoglobin A1c 10/12/2019 [facility] Outpatient Testi ng (Registration) [address] [place] [address] [phone] Hemoglobin A1c 6.1 % Normal 3 Estimated Average Glucose 128 mg/dL High 60-110 Basic Metabolic Profile 10/12/2019 [facility] Outpatient T esting (Registration) [address] [place] [address] [phone] Glucose, Fasting 101 mg/dL High 70-100 Blood Urea Nitrogen 19 mg/dL High 7-18 Creatinine For GFR 0.86 mg/dL Normal 0.55-1.30 Glomerular Filtration Rate > 60.0 Normal >39 4 Sodium Level 140 mEq/L Normal 136-145 Potassium Serum 4.2 mEq/L Normal 3.5-5.1 Chloride Level 108 mEq/L High 98-107 Carbon Dioxide Level 25 mEq/L Normal 21-32 Anion Gap 7 mEq/L Low 8-16 Calcium Level 9.4 mg/dL Normal 8.8-10.2 1 Units are mL/min/1.73 m2 Chronic Kidney Disease Staging per NKF: Stage I & II GFR >=60 Normal to Mildly Decreased Stage III GFR 30-59 Moderately Decreased Stage IV GFR 15-29 Severely Decreased Stage V GFR <15 Very Little GFR Left ESRD GFR <15 on [employer] 2 REFERENCE RANGES: <=5.6% NORMAL 5.7-6.4% SUGGESTS IMPAIRED GLUCOSE META BOLISM/PREDIABETIC >= 6.5% ABNORMAL 3 REFERENCE RANGES: 4.5-5.6% NORMAL 5.7-6.4% SUGGESTS IMPAIRED GLUCOSE META BOLISM >= 6.5% ABNORMAL 4 Units are mL/min/1.73 m2 Chronic Kidney Disease Staging per NKF: Stage I & II GFR >=60 Normal to Mildly Decreased Stage III GFR 30-59 Moderately Decreased Stage IV GFR 15-29 Severely Decreased Stage V GFR <15 Very Little GFR Left ESRD GFR <15 on [employer] Procedures Date Code Description Status 10/13/2019 [id number] Mammogram Completed 09/24/2018 [id number] Mammogram Completed 09/18/2017 [id number] Mammogram Completed Medical Devices Description No Information Available Encounters Type Date Location Provider Dx Diagnosis Office Visit 10/13/2019 11:20a [facility] Kelly Jones D.O. 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 Plan of Treatment Future Appointment(s):* 04/12/2020 11:00 am - MIRLANDE Meyers at [facility] Functional Status Description No Information Available Mental Status Description No Information Available Referrals Refer to Reason for Referral Status Appt Date Gian Madrid MD has requested your off ice for treatment of her cataract Created [address], [address] [place] [id number] [phone]
[2020-06-13] MEDS ORDERED: BSS IRR 500ML/OMIDRIA 4ML IRR BAG (OR ONLY) As Ordered ONE (12:02)
[2020-06-13] MEDS ORDERED: DUOVISC (0.50ML VISCOAT/0.55ML PROVISC) OPHTH KIT As Ordered ONE (12:07)
[2020-06-13] MEDS ORDERED: fentaNYL 100 MCG/2 ML INJECTION (J3010) As Ordered ONE (12:37)
[2020-06-13] MEDS ORDERED: MIDAZOLAM INJ 2MG/2ML VIAL (J2250 PER 1MG) As Ordered ONE (12:37)
[2020-06-13 13:05] VITALS: BP 130/75
--- NOTE | 2020-06-14 09:27 | RO ---
OPERATIVE NOTE DATE OF OPERATION: 06/13/2020 PREOPERATIVE DIAGNOSES: 1. Visually significant nuclear sclerotic cataract, right eye. 2. Primary open angle glaucoma, moderate stage, right eye. POSTOPERATIVE DIAGNOSES: 1. Visually significant nuclear sclerotic cataract, right eye. 2. Primary open angle glaucoma, moderate stage, right eye. PROCEDURE: 1. Extracapsular cataract removal with insertion of intraocular lens, AU00TO, 10.5 D, right eye. 2. Placement of GlaukosiStent, right eye. ANESTHESIA: Local (Omidria) with MAC COMPLICATIONS: None POSTOPERATIVE CONDITION: Stable INDICATIONS FOR SURGERY: 1. Blurred vision affecting patient's activities of daily living DESCRIPTION OF PROCEDURE: The patient was seen in the preoperative area and properly identified. The correct operative eye was identified and marked. The patient received topical anesthetic, antibiotics, and topical dilating drops. The patient was then transferred to the operating room. The correct side was re-identified and a timeout was performed. The eye was prepped and draped in a sterile fashion. The eyelids were isolated with Tegaderm tape and the lids were held open with an adjustable speculum. A 1.0mm paracentesis incision was made. Omidria was injected into the anterior chamber. Viscoelastic was then injected into the anterior chamber through the paracentesis. Using a 2.4mm sharp-tipped keratome, the anterior chamber was entered via a temporal clear cornea incision. A continuous curvilinear capsulorhexis was created with Utrata forceps. Hydrodissection was performed with BSS on a blunt cannula until the nucleus was able to rotate freely. The crystalline lens was phacoemulsified and aspirated. Irrigation/aspiration was used to remove the cortical material Cohesive viscoelastic was placed into the capsular bag to deepen it. The implant was placed into the capsular bag and allowed to unfold. Placement was confirmed by visualizing the anterior capsulorhexis. Additional viscoelastic was placed in the anterior chamber, and on top of the cornea. The head was untaped, and rotated away. The microscope was rotated to 45 degrees. A gonioprism was placed on the cornea and the angle was visualized. The iStent inject was placed into the trabecular meshwork, approximately 4 clock hours apart without difficulty. A small gush of heme was noted indicating appropriate placement. No hyphema was present. The head was placed face up and the microscope to 0 degrees. Irrigation/aspiration was used to remove the viscoelastic. The clear corneal incision was hydrated with BSS on a blunt cannula. The lens was well positioned. Cefuroxime was injected into the anterior chamber. The incisions were then tested for leaks and found to be negative. The eye was then palpated for appropriate pressure and adjusted accordingly with BSS. The eyelid speculum was then carefully removed. A shield was placed over the eye. The patient tolerated the procedure well and was discharge to the recovery unit in a stable condition.
== END 2020-06-13 13:30 | disposition home or self-care (01) ==
LOC: M SDC 09:35
PROVIDERS: ATTEND Ophthalmology
DX: H25.11 Age-related nuclear cataract, right eye (principal); H40.1112 Primary open-angle glaucoma, right eye, moderate stage; I10 Essential (primary) hypertension; E78.5 Hyperlipidemia, unspecified; K21.9 Gastro-esophageal reflux disease without esophagitis; Z79.899 Other long term (current) drug therapy
CPT/HCPCS: 66183; 66984; C1783; J1097; J2250; J3010; V2632

== ENCOUNTER → 2020-09-02 | Outpatient (CLI) | payer MEDICARE, OTHER ==
[~2020-09-02] MED LIST changes: -CEFUROXIME 1MG/0.1ML INTRACAMERAL INJ As Ordered ONE; -DUOVISC (0.50ML VISCOAT/0.55ML PROVISC) OPHTH KIT As Ordered ONE; -OFLOXACIN 0.3 % (OCUFLOX) OPTH SOL 5ML OD ONE; -PHENYLEPHRINE 2.5% OPHTH SOL 2ML OD ONE; -POVIDONE-IODINE 5% OPHTH PREP SOL 30ML As Ordered ONE; -PROPARACAINE 0.5% OPHTH SOL 15ML OD ONE; -TROPICAMIDE 1% OPHTH SOLN 2ML OD ONE
== END ==
LOC: M LABSMTC 09:37
PROVIDERS: ATTEND Anesthesiology
DX: Z20.828 Contact with and (suspected) exposure to other viral communicable diseases (principal); Z11.59 Encounter for screening for other viral diseases

== ENCOUNTER 2020-09-07 08:43 | Day surgery (SDC) | payer MEDICARE, OTHER ==
[~2020-09-07] VITALS: Ht 160 cm; Wt 87.1 kg
[~2020-09-07 08:43] MED LIST changes: +NS 1,000 ML IV ONE
[2020-09-07] MEDS ORDERED: propofoL 200 MG/20 ML VIAL As Ordered ONE (09:49)
[2020-09-07] MEDS ORDERED: LIDOCAINE 2% 100MG/5ML SDV (FOR ANES.) As Ordered ONE (09:49)
--- NOTE | 2020-09-07 10:19 | ROOR ---
Patient Name: Karyna Rob Procedure Date: 09/07/2020 10:01 AM Date of : 1945 Age: 75 Room: [facility] Gender: Female Note Status: Finalized Procedure: Upper GI endoscopy Indications: Follow-up of Wade's esophagus Providers: Darron Sibley DO Referring MD: Kelly BURNETTE DO Requesting Provider: Medicines: Propofol per Anesthesia Complications: No immediate complications. Procedure: Pre-Anesthesia Assessment: - Prior to the procedure, a History and Physical was performed, and patient medications and allergies were reviewed. The patient is competent. The risks and benefits of the procedure and the sedation options and risks were discussed with the patient. All questions were answered and informed consent was obtained. Patient identification and proposed procedure were verified by the physician, the nurse, the deicer repairer electric and the school laboratory technician in the endoscopy suite. Mental Status Examination: alert and oriented. Airway Examination: normal oropharyngeal airway and neck mobility. Respiratory Examination: clear to auscultation. CV Examination: normal. Prophylactic Antibiotics: The patient does not require prophylactic antibiotics. Prior Anticoagulants: The patient has taken no previous anticoagulant or antiplatelet agents. ASA Grade Assessment: II - A patient with mild systemic disease. After reviewing the risks and benefits, the patient was deemed in satisfactory condition to undergo the procedure. The anesthesia plan was to use monitored anesthesia care (MAC). Immediately prior to administration of medications, the patient was re-assessed for adequacy to receive sedatives. The heart rate, respiratory rate, oxygen saturations, blood pressure, adequacy of pulmonary ventilation, and response to care were monitored throughout the procedure. The physical status of the patient was re-assessed after the procedure. The Endoscope was introduced through the mouth, and advanced to the second part of duodenum. The upper GI endoscopy was accomplished without difficulty. The patient tolerated the procedure well. Findings: Scattered mild inflammation characterized by congestion (edema), erythema, friability and granularity was found in the prepyloric region of the stomach. Biopsies were taken with a cold forceps for Helicobacter pylori testing. Estimated blood loss was minimal. Localized mild inflammation characterized by adherent blood, congestion (edema), erosions and friability was found in the duodenal bulb. The Z-line was irregular. Biopsies were taken with a cold forceps for histology. Estimated blood loss was minimal. Impression: - Gastritis. Biopsied. - Duodenitis. - Z-line irregular. Biopsied. Recommendation: - Patient has a contact number available for emergencies. The signs and symptoms of potential delayed complications were discussed with the patient. Return to normal activities tomorrow. Written discharge instructions were provided to the patient. - Await pathology results. - Return to my office at appointment to be scheduled. Procedure Code(s): --- Professional --- 09536, Esophagogastroduodenoscopy, flexible, transoral; with biopsy, single or multiple Diagnosis Code(s): --- Professional --- K29.70, Gastritis, unspecified, without bleeding K29.80, Duodenitis without bleeding K22.8, Other specified diseases of esophagus K22.70, Wade's esophagus without dysplasia CPT copyright 2019 [employer]. All rights reserved. The codes documented in this report are preliminary and upon burr bench operator review may be revised to meet current compliance requirements. Darron Sibley DO 09/07/2020 10:19:17 AM Electronically signed by Darron Sibley DO Number of Addenda: 0 Note Initiated On: 09/07/2020 10:01 AM Estimated Blood Loss: Estimated blood loss was minimal.
[2020-09-07 10:40] VITALS: BP 139/85
== END 2020-09-07 10:45 | disposition home or self-care (01) ==
LOC: M OPP 08:43
PROVIDERS: ATTEND Surgery
DX: K29.70 Gastritis, unspecified, without bleeding (principal); K29.80 Duodenitis without bleeding; K22.8 Other specified diseases of esophagus; K22.70 Barrett's esophagus without dysplasia; K59.00 Constipation, unspecified; Z79.899 Other long term (current) drug therapy; Z87.891 Personal history of nicotine dependence

== ENCOUNTER → 2020-10-10 | Outpatient (CLI) | payer MEDICARE, OTHER ==
[~2020-10-10] MED LIST changes: -NS 1,000 ML IV ONE
[2020-10-10 13:27] LABS: BASO # 0.1 10^3/uL (0.0-0.2); BASO % 1.4 % (0.0-1.0); EOS # 0.1 10^3/uL (0.0-0.5); EOS % 1.6 % (0.0-3.0); HEMATOCRIT 40.6 % (36.0-47.0); HEMOGLOBIN 13.3 g/dl (12.0-15.5); LYMPH # 2.3 10^3/uL (1.5-5.0); LYMPH % 36.2 % (24.0-44.0); MEAN CORPUSCULAR HEMOGLOBIN 29.4 pg (27.0-33.0); MEAN CORPUSCULAR HGB CONC 32.8 g/dl (32.0-36.5); MEAN CORPUSCULAR VOLUME 89.8 fl (80.0-96.0); MONO # 0.7 10^3/uL (0.0-0.8); MONO % 10.4 % (2.0-8.0); NEUTROPHILS # 3.1 10^3/uL (1.5-8.5); NEUTROPHILS % 49.9 % (36.0-66.0); PLATELET COUNT, AUTOMATED 237 10^3/uL (150-450); RED BLOOD COUNT 4.52 10^6/uL (4.00-5.40); WHITE BLOOD COUNT 6.3 10^3/uL (4.0-10.0)
[2020-10-10 14:12] LABS: BLOOD UREA NITROGEN 18 MG/DL (7-18); CREATININE FOR GFR 0.83 MG/DL (0.55-1.30); GLUCOSE, FASTING 106 MG/DL (70-100); HEMOGLOBIN A1c 5.7 %
[2020-10-10 14:13] LABS: ALBUMIN 3.7 GM/DL (3.2-5.2); ALT/SGPT 32 U/L (12-78); BILIRUBIN,TOTAL 0.5 MG/DL (0.2-1.0); CALCIUM LEVEL 8.9 MG/DL (8.8-10.2); CARBON DIOXIDE LEVEL 28 MEQ/L (21-32); CHLORIDE LEVEL 110 MEQ/L (98-107); CHOLESTEROL LEVEL 140 MG/DL (<200); CHOLESTEROL RISK RATIO 2.372 (<5); GLOMERULAR FILTRATION RATE > 60.0 (>39); HDL CHOLESTEROL 59 MG/DL (>40); LDL CHOLESTEROL 65 MG/DL (<100); NON-HDL-C 81 MG/DL; POTASSIUM SERUM 4.4 MEQ/L (3.5-5.1); SODIUM LEVEL 142 MEQ/L (136-145); TOTAL PROTEIN 6.4 GM/DL (6.4-8.2); TRIGLYCERIDES LEVEL 79 MG/DL (<150)
== END ==
LOC: M WUC 10:19
PROVIDERS: ATTEND Physician Assistant
DX: K21.9 Gastro-esophageal reflux disease without esophagitis (principal); I10 Essential (primary) hypertension; R73.03 Prediabetes

== ENCOUNTER → 2020-10-25 | Outpatient (CLI) | payer MEDICARE, OTHER ==
--- NOTE | 2020-10-26 07:01 | ECHO ---
ECHOCARDIOGRAM DATE OF PROCEDURE: 10/25/2020 Age: 75 Gender: Female Height: 62 inches Weight: 191 pounds Body surface area: 1.87 m2 PATIENT LOCATION: Outpatient. REFERRING PHYSICIAN: Kelly Jones D.O. INDICATION: Aortic valve disorder (nonrheumatic). MEASUREMENTS: 2D Measurements: RV 2.9 cm LV 4.1 cm Septum 1.2 cm Posterior wall 1.2 cm Aortic Root 3.7 cm LA 3.8 cm LVEF 75% Doppler Measurements: AV 2.4 m/s LVOT 0.8 m/s LVOT diameter 1.9 cm Mean AV gradient 13 mmHg Dimensionless index 0.33 MV-E 69, A 84, E/A ratio 0.8 Early mitral deceleration time 289 msec E prime medial 4.7, A prime medial 12, E prime lateral 6.1 Average E/E prime ratio 17.8/PCWP 17.7 mmHg PV 0.85 m/s Pulmonary artery acceleration time 109 msec RVSP 34 mmHg IVC 1.5 cm COMMENTS: Normal sinus rhythm without intraventricular conduction disturbance. M-mode and two-dimensional echocardiography was performed with pulse, continuous wave, color flow, and tissue Doppler studies. Borderline concentric left ventricular hypertrophy with hyperkinetic wall motion. Left atrial size upper limits of normal with grade 1 LV diastolic dysfunction and current estimated mean left atrial pressure borderline increased. Normal right heart chamber sizes and motion with Doppler evidence of mild pulmonary hypertension. Normal IVC size and collapse against an elevated central venous pressure. Normal aortic dimensions. Moderate aortic valvular sclerosis with mild stenosis and very mild insufficiency. Mild degenerative changes of the mitral valve apparatus without inflow tract obstruction and no more than trace insufficiency. Normal appearing tricuspid valve with very mild insufficiency. No apparent intracardiac mass or pericardial effusion. A follow-up study would be suggested in two years to reassess aortic valve structure and function. FELICIA
== END ==
LOC: M CARPUL 14:17
PROVIDERS: ATTEND Family Medicine
DX: I35.8 Other nonrheumatic aortic valve disorders (principal)

== ENCOUNTER → 2020-11-04 | Outpatient (CLI) | payer MEDICARE, OTHER ==
[~2020-11-04] MED LIST changes: +LOSA100T45 PO; -LOSA100T50 PO
== END ==
LOC: M WHC 09:45
PROVIDERS: ATTEND Family Medicine
DX: Z12.31 Encounter for screening mammogram for malignant neoplasm of breast (principal); Z80.3 Family history of malignant neoplasm of breast

== ENCOUNTER → 2020-11-09 | Outpatient (CLI) | payer MEDICARE, OTHER ==
[~2020-11-09] MED LIST changes: +ISOVUE-300 61% 50ML VIAL As Ordered ONE; +LIDOCAINE 1% MDV 20ML VIAL As Ordered ONE; -LOSA100T45 PO; +LOSA100T50 PO; +TRIAMCINOLONE ACETONIDE SUSP 40 MG/ML VIAL (J3301) As Ordered ONE
--- NOTE | 2020-11-09 16:27 | REP ---
INDICATION: RIGHT SHOULDER OSTEOARTHRITIS. COMPARISON: None TECHNIQUE: The procedure was performed by PITER Malcolm, under the direct supervision of Dr. Mcmahon. The benefits and risks of the procedure were explained to the patient, and an informed consent was obtained. Directly prior to the start of the procedure, a formal time-out was completed in the procedure room. The right glenohumeral joint space was localized using fluoroscopic guidance. The skin was prepped and draped in a sterile fashion. Approximately 5 mL of 1% Lidocaine 10 mg/ml was used as a local anesthetic. Using fluoroscopic guidance, a #22 gauge spinal needle was inserted and advanced into the right glenohumeral joint space. Approximately 1 mL of Isovue 300 was injected to verify placement. Six mL of a solution containing 5 mL 1% lidocaine 10 mg/ml and 1 mL Kenalog 40 milligrams/milliliter was injected into the joint space. The needle was removed and hemostasis was achieved. FINDINGS: The patient tolerated the procedure well and there were no immediate complications. IMPRESSION: 1. Fluoroscopically guided right shoulder intra-articular pain injection. 0.1 minutes of fluoroscopy time was utilized for this procedure. Some fluoroscopic images are performed with last image hold technology. These images require no additional radiation. <Electronically signed by Kyra Key > 11/09/20 1603 <Electronically signed by Alex Mcmahon > 11/09/20 [id number]
== END ==
LOC: M RADPRO 12:02
PROVIDERS: ATTEND Orthopaedic Surgery
DX: M19.011 Primary osteoarthritis, right shoulder (principal)
CPT/HCPCS: 20610; 77002; J3301; Q9967

== ENCOUNTER → 2021-05-02 | Outpatient (CLI) | payer MEDICARE, OTHER ==
[~2021-05-02] MED LIST changes: -ISOVUE-300 61% 50ML VIAL As Ordered ONE; -LIDOCAINE 1% MDV 20ML VIAL As Ordered ONE; -TRIAMCINOLONE ACETONIDE SUSP 40 MG/ML VIAL (J3301) As Ordered ONE
[2021-05-02 14:08] LABS: HEMOGLOBIN A1c 5.8 %
[2021-05-02 14:13] LABS: ALBUMIN 4.1 GM/DL (3.2-5.2); ALT/SGPT 42 U/L (12-78); BILIRUBIN,TOTAL 0.5 MG/DL (0.2-1.0); BLOOD UREA NITROGEN 20 MG/DL (7-18); CALCIUM LEVEL 9.4 MG/DL (8.8-10.2); CARBON DIOXIDE LEVEL 28 MEQ/L (21-32); CHLORIDE LEVEL 107 MEQ/L (98-107); CHOLESTEROL LEVEL 159 MG/DL (<200); CHOLESTEROL RISK RATIO 2.208 (<5); CREATININE FOR GFR 0.74 MG/DL (0.55-1.30); FREE T4 0.83 NG/DL (0.76-1.46); GLOMERULAR FILTRATION RATE > 60.0 (>39); GLUCOSE, FASTING 107 MG/DL (70-100); HDL CHOLESTEROL 72 MG/DL (>40); LDL CHOLESTEROL 64 MG/DL (<100); NON-HDL-C 87 MG/DL; POTASSIUM SERUM 4.1 MEQ/L (3.5-5.1); SODIUM LEVEL 142 MEQ/L (136-145); TOTAL PROTEIN 7.1 GM/DL (6.4-8.2); TRIGLYCERIDES LEVEL 113 MG/DL (<150)
== END ==
LOC: M LAB 12:56
PROVIDERS: ATTEND Family Medicine
DX: E78.00 Pure hypercholesterolemia, unspecified (principal)

== ENCOUNTER → 2021-05-15 | Outpatient (CLI) | payer MEDICARE, OTHER ==
[~2021-05-15] MED LIST changes: +LOSA100T45 PO; -LOSA100T50 PO
== END ==
LOC: M RAD 13:49
PROVIDERS: ATTEND Nurse Practitioner Adult Health
DX: M62.81 Muscle weakness (generalized) (principal)

== ENCOUNTER → 2021-06-13 | Outpatient (CLI) | payer MEDICARE, OTHER ==
[2021-06-13 13:25] LABS: BASO # 0.1 10^3/uL (0.0-0.2); BASO % 1.4 % (0.0-1.0); EOS # 0.1 10^3/uL (0.0-0.5); EOS % 2.1 % (0.0-3.0); HEMATOCRIT 37.9 % (36.0-47.0); HEMOGLOBIN 12.4 g/dl (12.0-15.5); LYMPH # 2.1 10^3/uL (1.5-5.0); LYMPH % 30.9 % (24.0-44.0); MEAN CORPUSCULAR HEMOGLOBIN 29.6 pg (27.0-33.0); MEAN CORPUSCULAR HGB CONC 32.7 g/dl (32.0-36.5); MEAN CORPUSCULAR VOLUME 90.5 fl (80.0-96.0); MONO # 0.5 10^3/uL (0.0-0.8); MONO % 8.1 % (2.0-8.0); NEUTROPHILS # 3.8 10^3/uL (1.5-8.5); NEUTROPHILS % 56.9 % (36.0-66.0); PLATELET COUNT, AUTOMATED 249 10^3/uL (150-450); RED BLOOD COUNT 4.19 10^6/uL (4.00-5.40); WHITE BLOOD COUNT 6.7 10^3/uL (4.0-10.0)
[2021-06-13 13:53] LABS: ALT/SGPT 31 U/L (12-78); BILIRUBIN,TOTAL 0.5 MG/DL (0.2-1.0); BLOOD UREA NITROGEN 24 MG/DL (7-18); CALCIUM LEVEL 9.5 MG/DL (8.8-10.2); CARBON DIOXIDE LEVEL 26 MEQ/L (21-32); CHLORIDE LEVEL 110 MEQ/L (98-107); CREATININE FOR GFR 0.96 MG/DL (0.55-1.30); GLOMERULAR FILTRATION RATE > 60.0 (>39); GLUCOSE, FASTING 103 MG/DL (70-100); MAGNESIUM LEVEL 2.2 MG/DL (1.8-2.4); POTASSIUM SERUM 4.3 MEQ/L (3.5-5.1); SODIUM LEVEL 142 MEQ/L (136-145); TOTAL PROTEIN 6.7 GM/DL (6.4-8.2)
[2021-06-13 14:06] LABS: ERYTHROCYTE SEDIMENTATION RATE 18 mm/hr (0-30)
== END ==
LOC: M PLALAB 10:28
PROVIDERS: ATTEND Nurse Practitioner Adult Health
DX: M79.604 Pain in right leg (principal)

== ENCOUNTER → 2021-08-03 | Outpatient (CLI) | payer MEDICARE, OTHER ==
[2021-08-03 12:50] LABS: BASO # 0.1 10^3/uL (0.0-0.2); BASO % 1.9 % (0.0-1.0); EOS # 0.2 10^3/uL (0.0-0.5); HEMATOCRIT 35.9 % (36.0-47.0); HEMOGLOBIN 12.1 g/dl (12.0-15.5); LYMPH # 2.5 10^3/uL (1.5-5.0); LYMPH % 39.5 % (24.0-44.0); MEAN CORPUSCULAR HGB CONC 33.7 g/dl (32.0-36.5); MEAN CORPUSCULAR VOLUME 88.9 fl (80.0-96.0); MONO # 0.6 10^3/uL (0.0-0.8); MONO % 10.3 % (2.0-8.0); NEUTROPHILS # 2.8 10^3/uL (1.5-8.5); NEUTROPHILS % 44.8 % (36.0-66.0); PLATELET COUNT, AUTOMATED 262 10^3/uL (150-450); RED BLOOD COUNT 4.04 10^6/uL (4.00-5.40); WHITE BLOOD COUNT 6.2 10^3/uL (4.0-10.0)
[2021-08-03 13:13] LABS: ALBUMIN 3.9 GM/DL (3.2-5.2); BILIRUBIN,TOTAL 0.6 MG/DL (0.2-1.0); CALCIUM LEVEL 9.9 MG/DL (8.8-10.2); CHOLESTEROL RISK RATIO 2.483 (<5); CREATININE FOR GFR 1.1 MG/DL (0.55-1.30); GLOMERULAR FILTRATION RATE 51.5 (>39); POTASSIUM SERUM 3.3 MEQ/L (3.5-5.1); TOTAL PROTEIN 6.9 GM/DL (6.4-8.2)
== END ==
LOC: M WUC 09:26
PROVIDERS: ATTEND Family Medicine
DX: E78.00 Pure hypercholesterolemia, unspecified (principal); I10 Essential (primary) hypertension

== ENCOUNTER → 2021-08-07 | Outpatient (CLI) | payer MEDICARE, OTHER | LOC: M PLAIMG 07:35 | PROVIDERS: ATTEND Nurse Practitioner Adult Health | DX: G81.92 Hemiplegia, unspecified affecting left dominant side (principal); R53.1 Weakness; Z82.3 Family history of stroke ==

== ENCOUNTER → 2021-08-18 | Outpatient (CLI) | payer MEDICARE, OTHER | LOC: M PLARAD 13:54 | PROVIDERS: ATTEND Family Medicine | DX: M48.061 Spinal stenosis, lumbar region without neurogenic claudication (principal); M79.661 Pain in right lower leg; M79.605 Pain in left leg ==

== ENCOUNTER → 2021-10-25 | Outpatient (CLI) | payer MEDICARE, OTHER ==
[2021-10-25 13:59] LABS: C REACTIVE PROTEIN QUANTITATIV 0.31 MG/DL (0.00-0.30); URIC ACID 5.1 MG/DL (2.6-6.0)
== END ==
LOC: M PLALAB 10:50
PROVIDERS: ATTEND Nurse Practitioner Adult Health
DX: M25.532 Pain in left wrist (principal)

== ENCOUNTER → 2022-01-18 | Outpatient (CLI) | payer MEDICARE, OTHER | LOC: M WHC 08:39 | PROVIDERS: ATTEND Nurse Practitioner Adult Health | DX: Z12.31 Encounter for screening mammogram for malignant neoplasm of breast (principal) ==

== ENCOUNTER → 2022-02-06 | Outpatient (CLI) | payer MEDICARE, OTHER ==
[2022-02-06 14:24] LABS: BASO # 0.1 10^3/uL (0.0-0.2); BASO % 1.5 % (0.0-1.0); EOS # 0.1 10^3/uL (0.0-0.5); EOS % 1.9 % (0.0-3.0); HEMOGLOBIN 12.3 g/dl (12.0-15.5); LYMPH # 2.1 10^3/uL (1.5-5.0); LYMPH % 35.5 % (24.0-44.0); MEAN CORPUSCULAR HEMOGLOBIN 30.1 pg (27.0-33.0); MEAN CORPUSCULAR HGB CONC 32.4 g/dl (32.0-36.5); MEAN CORPUSCULAR VOLUME 93.1 fl (80.0-96.0); MONO # 0.6 10^3/uL (0.0-0.8); MONO % 10.2 % (2.0-8.0); NEUTROPHILS % 50.4 % (36.0-66.0); PLATELET COUNT, AUTOMATED 266 10^3/uL (150-450); RED BLOOD COUNT 4.08 10^6/uL (4.00-5.40); WHITE BLOOD COUNT 5.9 10^3/uL (4.0-10.0)
[2022-02-06 15:17] LABS: CREATININE, URINE 97.6 MG/DL; MALB URINE SIEMENS 14.8 MG/L; MAU/CREAT RATIO 15.1 MCG/MG (0.0-30.0)
[2022-02-06 15:19] LABS: ALBUMIN 3.9 GM/DL (3.2-5.2); ALT/SGPT 31 U/L (12-78); BILIRUBIN,TOTAL 0.5 MG/DL (0.2-1.0); BLOOD UREA NITROGEN 29 MG/DL (7-18); CALCIUM LEVEL 9.6 MG/DL (8.8-10.2); CARBON DIOXIDE LEVEL 28 MEQ/L (21-32); CHLORIDE LEVEL 106 MEQ/L (98-107); CREATININE FOR GFR 0.96 MG/DL (0.55-1.30); FREE T4 0.85 NG/DL (0.76-1.46); GLOMERULAR FILTRATION RATE > 60.0 (>39); GLUCOSE, FASTING 118 MG/DL (70-100); POTASSIUM SERUM 3.8 MEQ/L (3.5-5.1); SODIUM LEVEL 141 MEQ/L (136-145); TOTAL PROTEIN 6.9 GM/DL (6.4-8.2)
== END ==
LOC: M PLALAB 10:00
PROVIDERS: ATTEND Nurse Practitioner Adult Health
DX: R73.03 Prediabetes (principal)

== ENCOUNTER → 2022-05-14 | Outpatient (CLI) | payer MEDICARE, OTHER | LOC: M PLAIMG 10:08 | PROVIDERS: ATTEND Nurse Practitioner Adult Health | DX: R07.9 Chest pain, unspecified (principal) ==

== ENCOUNTER → 2022-05-15 | Outpatient (CLI) | payer MEDICARE, OTHER ==
[2022-05-15 13:50] LABS: BASO # 0.1 10^3/uL (0.0-0.2); BASO % 1.3 % (0.0-1.0); EOS # 0.1 10^3/uL (0.0-0.5); EOS % 1.9 % (0.0-3.0); HEMATOCRIT 37.8 % (36.0-47.0); HEMOGLOBIN 12.3 g/dl (12.0-15.5); LYMPH # 2.3 10^3/uL (1.5-5.0); LYMPH % 33.4 % (24.0-44.0); MEAN CORPUSCULAR HEMOGLOBIN 30.5 pg (27.0-33.0); MEAN CORPUSCULAR HGB CONC 32.5 g/dl (32.0-36.5); MEAN CORPUSCULAR VOLUME 93.8 fl (80.0-96.0); MONO # 0.7 10^3/uL (0.0-0.8); MONO % 9.9 % (2.0-8.0); NEUTROPHILS # 3.6 10^3/uL (1.5-8.5); NEUTROPHILS % 52.9 % (36.0-66.0); PLATELET COUNT, AUTOMATED 246 10^3/uL (150-450); RED BLOOD COUNT 4.03 10^6/uL (4.00-5.40); WHITE BLOOD COUNT 6.8 10^3/uL (4.0-10.0)
[2022-05-15 13:58] LABS: HEMOGLOBIN A1c 5.7 % (4.0-6.0)
[2022-05-15 14:17] LABS: C REACTIVE PROTEIN QUANTITATIV < 0.40 MG/DL (<1.0)
[2022-05-15 14:19] LABS: CPK CREATINE PHOSPHOKINASE 95 U/L (34-145)
[2022-05-15 14:23] LABS: ALKALINE PHOSPHATASE 69 U/L (46-116); ALT/SGPT 21 U/L (7.0-40); AST/SGOT 16 U/L (<34); BILIRUBIN,TOTAL 0.5 MG/DL (0.3-1.2); BLOOD UREA NITROGEN 25 MG/DL (9-23); CALCIUM LEVEL 9.3 MG/DL (8.3-10.6); CARBON DIOXIDE LEVEL 29 MMOL/L (20-31); CHLORIDE LEVEL 104 MMOL/L (98-107); CHOLESTEROL LEVEL 133 MG/DL (<200); CK-MB VALUE MASS 1.5 NG/ML (<3.6); CREATININE FOR GFR 0.92 MG/DL (0.55-1.30); GLOMERULAR FILTRATION RATE > 60.0 (>39); GLUCOSE, FASTING 109 MG/DL (74-106); HDL CHOLESTEROL 55.4 MG/DL (>40); LDL CHOLESTEROL 58.6 MG/DL (<100); MB/CK RELATIVE INDEX 1.57 (< OR =4); NON-HDL-C 78 MG/DL; POTASSIUM SERUM 4.4 MMOL/L (3.5-5.1); SODIUM LEVEL 141 MMOL/L (136-145); TOTAL PROTEIN 6.5 G/DL (5.7-8.2); TRIGLYCERIDES LEVEL 95 MG/DL (<150)
[2022-05-15 15:00] LABS: ERYTHROCYTE SEDIMENTATION RATE 14 mm/hr (0-30)
== END ==
LOC: M PLALAB 09:41
PROVIDERS: ATTEND Nurse Practitioner Adult Health
DX: R73.03 Prediabetes (principal); E78.00 Pure hypercholesterolemia, unspecified; R07.9 Chest pain, unspecified

== ENCOUNTER → 2022-07-27 | Outpatient (CLI) | payer MEDICARE, OTHER | LOC: M CARPUL 08:53 | PROVIDERS: ATTEND Nurse Practitioner Adult Health | DX: R01.1 Cardiac murmur, unspecified (principal) ==

== ENCOUNTER 2022-08-06 18:17 | Emergency (ER) | payer MEDICARE, OTHER ==
[~2022-08-06] VITALS: Ht 160 cm; Wt 88.3 kg
[2022-08-06] MEDS ORDERED: ACET-683 PO (18:29)
[2022-08-07] MEDS ORDERED: LIDOCAINE 1% MDV 20ML VIAL SC ONE (01:00)
[2022-08-07] MEDS ORDERED: ceFAZolin SOD 1 GM in D5W MINI-BAG PLUS 50 ML IV ONE (01:00)
[2022-08-07] MEDS ORDERED: CEPH500C PO ×2 (01:03→01:05)
[2022-08-07] MEDS ORDERED: BOOSTRIX/ADACEL VACCINE (DIPHTH/PERTUSS/ACELL/TETANUS) 0.5ML SYR IM ONE (01:30)
[2022-08-07 03:02] VITALS: BP 135/88
== END 2022-08-07 03:13 | disposition home or self-care (01) ==
LOC: M ED 18:17
DX: S62.636B Displaced fracture of distal phalanx of right little finger, initial encounter for open fracture (principal); W19.XXXA Unspecified fall, initial encounter; Y92.410 Unspecified street and highway as the place of occurrence of the external cause; Y93.89 Activity, other specified; Y99.8 Other external cause status; I10 Essential (primary) hypertension; E78.5 Hyperlipidemia, unspecified
CPT/HCPCS: 12001; 73140; 90715; 96365; 99284; J0690

== ENCOUNTER → 2022-08-16 | Outpatient (CLI) | payer MEDICARE, OTHER ==
[~2022-08-16] MED LIST changes: +ACET-683 PO; +CEPH500C PO
== END ==
LOC: M SOG 07:54
PROVIDERS: ATTEND Physician Assistant
DX: S62.616A Displaced fracture of proximal phalanx of right little finger, initial encounter for closed fracture (principal)

== ENCOUNTER → 2022-08-20 | Outpatient (REF) | payer MEDICARE, OTHER ==
[2022-08-20 17:30] LABS: BASO # 0.1 10^3/uL (0.0-0.2); EOS # 0.2 10^3/uL (0.0-0.5); EOS % 2.4 % (0.0-3.0); HEMATOCRIT 38.3 % (36.0-47.0); HEMOGLOBIN 12.3 g/dl (12.0-15.5); LYMPH # 2.7 10^3/uL (1.5-5.0); LYMPH % 37.1 % (24.0-44.0); MEAN CORPUSCULAR HEMOGLOBIN 29.8 pg (27.0-33.0); MEAN CORPUSCULAR HGB CONC 32.1 g/dl (32.0-36.5); MEAN CORPUSCULAR VOLUME 92.7 fl (80.0-96.0); MONO # 0.6 10^3/uL (0.0-0.8); MONO % 8.7 % (2.0-8.0); NEUTROPHILS # 3.5 10^3/uL (1.5-8.5); NEUTROPHILS % 49.2 % (36.0-66.0); PLATELET COUNT, AUTOMATED 257 10^3/uL (150-450); RED BLOOD COUNT 4.13 10^6/uL (4.00-5.40); WHITE BLOOD COUNT 7.2 10^3/uL (4.0-10.0)
[2022-08-20 17:53] LABS: ALBUMIN 4.1 G/DL (3.2-5.2); ALKALINE PHOSPHATASE 66 U/L (46-116); ALT/SGPT 29 U/L (7.0-40); AST/SGOT 21 U/L (<34); BILIRUBIN,TOTAL 0.5 MG/DL (0.3-1.2); BLOOD UREA NITROGEN 24 MG/DL (9-23); CALCIUM LEVEL 9.6 MG/DL (8.3-10.6); CARBON DIOXIDE LEVEL 28 MMOL/L (20-31); CHLORIDE LEVEL 106 MMOL/L (98-107); CHOLESTEROL LEVEL 138 MG/DL (<200); CHOLESTEROL RISK RATIO 2.56 (<5); CREATININE FOR GFR 0.89 MG/DL (0.55-1.30); GLOMERULAR FILTRATION RATE > 60.0 (>39); GLUCOSE, FASTING 85 MG/DL (74-106); HDL CHOLESTEROL 53.8 MG/DL (>40); LDL CHOLESTEROL 55.2 MG/DL (<100); NON-HDL-C 84.2 MG/DL; SODIUM LEVEL 143 MMOL/L (136-145); TOTAL PROTEIN 6.6 G/DL (5.7-8.2); TRIGLYCERIDES LEVEL 145 MG/DL (<150)
[2022-08-20 18:08] LABS: HEMOGLOBIN A1c 5.7 % (4.0-6.0)
== END ==
LOC: M LAB REF 16:18
PROVIDERS: ATTEND Family Medicine
DX: I10 Essential (primary) hypertension (principal); R73.03 Prediabetes; E78.00 Pure hypercholesterolemia, unspecified

== ENCOUNTER → 2022-08-30 | Outpatient (CLI) | payer MEDICARE, OTHER ==
[~2022-08-30] MED LIST changes: -LOSA100T45 PO; +LOSA100T46 PO
== END ==
LOC: M SOG 07:59
PROVIDERS: ATTEND Physician Assistant
DX: Z47.89 Encounter for other orthopedic aftercare (principal); Z53.9 Procedure and treatment not carried out, unspecified reason

== ENCOUNTER → 2022-11-21 | Outpatient (REF) | payer MEDICARE, OTHER ==
[2022-11-21 17:22] LABS: CREATININE FOR GFR 1.04 MG/DL (0.55-1.30); GLOMERULAR FILTRATION RATE 54.8 (>39)
== END ==
LOC: M LABWUC 16:15
PROVIDERS: ATTEND Internal Medicine Interventional Cardiology
DX: I35.0 Nonrheumatic aortic (valve) stenosis (principal)

== ENCOUNTER → 2023-02-20 | Outpatient (REF) | payer MEDICARE, OTHER ==
[2023-02-20 14:01] LABS: BLOOD UREA NITROGEN 32 MG/DL (9-23); CALCIUM LEVEL 9.2 MG/DL (8.3-10.6); CARBON DIOXIDE LEVEL 30 MMOL/L (20-31); CHLORIDE LEVEL 106 MMOL/L (98-107); CREATININE FOR GFR 0.92 MG/DL (0.55-1.30); GLOMERULAR FILTRATION RATE > 60.0 (>39); GLUCOSE, FASTING 110 MG/DL (74-106); POTASSIUM SERUM 3.7 MMOL/L (3.5-5.1); SODIUM LEVEL 142 MMOL/L (136-145)
== END ==
LOC: M WUC 12:24
PROVIDERS: ATTEND Nurse Practitioner Adult Health
DX: I35.8 Other nonrheumatic aortic valve disorders (principal)

== ENCOUNTER → 2023-03-01 | Outpatient (CLI) | payer MEDICARE, OTHER | LOC: M WHC 16:20 | PROVIDERS: ATTEND Family Medicine | DX: Z12.31 Encounter for screening mammogram for malignant neoplasm of breast (principal) ==

== ENCOUNTER 2023-09-03 11:45 | Emergency (ER) | payer BC, MEDICARE, OTHER ==
[~2023-09-03] VITALS: Ht 160 cm; Wt 87.0 kg
[~2023-09-03 11:45] MED LIST changes: -ROSU40TA4 PO; +ROSU40TA63 PO
[2023-09-03 11:46] VITALS: TEMP 98.1
[2023-09-03] MEDS ORDERED: OMEP40CA5 (11:57)
[2023-09-03] MEDS ORDERED: CHLO125TA (11:57)
[2023-09-03] MEDS ORDERED: POTA-298 (11:57)
[2023-09-03] MEDS ORDERED: AMLO1TAB24 (11:57)
[2023-09-03 14:15] LABS: BASO # 0.1 10^3/uL (0.0-0.2); BASO % 1.6 % (0.0-1.0); EOS # 0.1 10^3/uL (0.0-0.5); EOS % 1.8 % (0.0-3.0); HEMATOCRIT 39.1 % (36.0-47.0); HEMOGLOBIN 13.4 g/dl (12.0-15.5); LYMPH # 2.1 10^3/uL (1.5-5.0); LYMPH % 29.3 % (24.0-44.0); MEAN CORPUSCULAR HEMOGLOBIN 30.6 pg (27.0-33.0); MEAN CORPUSCULAR HGB CONC 34.3 g/dl (32.0-36.5); MEAN CORPUSCULAR VOLUME 89.3 fl (80.0-96.0); MONO # 0.6 10^3/uL (0.0-0.8); MONO % 8.1 % (2.0-8.0); NEUTROPHILS # 4.3 10^3/uL (1.5-8.5); NEUTROPHILS % 58.4 % (36.0-66.0); PLATELET COUNT, AUTOMATED 187 10^3/uL (150-450); RED BLOOD COUNT 4.38 10^6/uL (4.00-5.40); WHITE BLOOD COUNT 7.3 10^3/uL (4.0-10.0)
[2023-09-03 14:17] LABS: CALCIUM LEVEL 9.2 MG/DL (8.3-10.6); GLOMERULAR FILTRATION RATE 57.2 (>39); POTASSIUM SERUM 3.7 MMOL/L (3.5-5.1)
[2023-09-03 14:20] LABS: FREE T4 1.06 NG/DL (0.89-1.76); THYROID STIMULATING HORMONE 1.671 uIU/ML (0.55-4.78)
[2023-09-03 14:51] LABS: CK-MB VALUE MASS 2.3 NG/ML (<3.6)
[2023-09-03 14:52] LABS: MB/CK RELATIVE INDEX 2.64 (< OR =4)
[2023-09-03 15:18] LABS: CK-MB VALUE MASS 2.3 NG/ML (<3.6)
[2023-09-03 15:19] LABS: MB/CK RELATIVE INDEX 2.7 (< OR =4)
[2023-09-03 15:30] VITALS: BP 151/74; O2SAT 97
== END 2023-09-03 15:49 | disposition home or self-care (01) ==
LOC: M ED 11:45
DX: G44.209 Tension-type headache, unspecified, not intractable (principal); I10 Essential (primary) hypertension; I44.7 Left bundle-branch block, unspecified; I44.4 Left anterior fascicular block; E78.5 Hyperlipidemia, unspecified; Z95.2 Presence of prosthetic heart valve; Z79.1 Long term (current) use of non-steroidal anti-inflammatories (NSAID); Z79.811 Long term (current) use of aromatase inhibitors; Z79.899 Other long term (current) drug therapy

== ENCOUNTER → 2023-11-12 | Outpatient (CLI) | payer MEDICARE ==
[~2023-11-12] MED LIST changes: +AMLO1TAB24; +CHLO125TA; +OMEP40CA5; +POTA-298
[2023-11-12 15:11] LABS: BASO # 0.1 10^3/uL (0.0-0.2); BASO % 1.7 % (0.0-1.0); EOS # 0.2 10^3/uL (0.0-0.5); EOS % 2.8 % (0.0-3.0); HEMATOCRIT 38.3 % (36.0-47.0); HEMOGLOBIN 12.4 g/dl (12.0-15.5); LYMPH # 2.2 10^3/uL (1.5-5.0); LYMPH % 33.9 % (24.0-44.0); MEAN CORPUSCULAR HEMOGLOBIN 30.8 pg (27.0-33.0); MEAN CORPUSCULAR HGB CONC 32.4 g/dl (32.0-36.5); MONO # 0.6 10^3/uL (0.0-0.8); MONO % 9.8 % (2.0-8.0); NEUTROPHILS # 3.3 10^3/uL (1.5-8.5); NEUTROPHILS % 51.3 % (36.0-66.0); PLATELET COUNT, AUTOMATED 192 10^3/uL (150-450); RED BLOOD COUNT 4.03 10^6/uL (4.00-5.40); WHITE BLOOD COUNT 6.5 10^3/uL (4.0-10.0)
[2023-11-12 15:19] LABS: THYROID STIMULATING HORMONE 1.848 uIU/ML (0.55-4.78)
[2023-11-12 15:22] LABS: FREE T4 0.99 NG/DL (0.89-1.76)
[2023-11-12 15:26] LABS: ALKALINE PHOSPHATASE 75 U/L (46-116); ALT/SGPT 25 U/L (7.0-40); AST/SGOT 18 U/L (<34); BILIRUBIN,TOTAL 0.5 MG/DL (0.3-1.2); BLOOD UREA NITROGEN 22 MG/DL (9-23); CALCIUM LEVEL 9.7 MG/DL (8.3-10.6); CARBON DIOXIDE LEVEL 28 MMOL/L (20-31); CHLORIDE LEVEL 108 MMOL/L (98-107); CHOLESTEROL LEVEL 149 MG/DL (<200); CHOLESTEROL RISK RATIO 2.91 (<5); CREATININE FOR GFR 0.94 MG/DL (0.55-1.30); GLOMERULAR FILTRATION RATE > 60.0 (>39); GLUCOSE, FASTING 123 MG/DL (74-106); HDL CHOLESTEROL 51.1 MG/DL (>40); LDL CHOLESTEROL 70.7 MG/DL (<100); NON-HDL-C 97.9 MG/DL; POTASSIUM SERUM 4.3 MMOL/L (3.5-5.1); SODIUM LEVEL 142 MMOL/L (136-145); TOTAL PROTEIN 6.3 G/DL (5.7-8.2); TRIGLYCERIDES LEVEL 136 MG/DL (<150)
[2023-11-12 15:41] LABS: HEMOGLOBIN A1c 5.7 % (4.0-6.0)
== END ==
LOC: M WUC 09:14
PROVIDERS: ATTEND Nurse Practitioner Adult Health
DX: R73.03 Prediabetes (principal); I10 Essential (primary) hypertension; E78.00 Pure hypercholesterolemia, unspecified

== ENCOUNTER → 2024-03-20 | Outpatient (CLI) | payer MEDICARE ==
[~2024-03-20] MED LIST changes: -ROSU40TA63 PO; +ROSU40TA81 PO
== END ==
LOC: M WHC 09:14
PROVIDERS: ATTEND Family Medicine
DX: Z12.31 Encounter for screening mammogram for malignant neoplasm of breast (principal)

== ENCOUNTER → 2024-05-15 | Outpatient (CLI) | payer MEDICARE ==
[2024-05-15 12:40] LABS: BASO # 0.1 10^3/uL (0.0-0.2); BASO % 1.5 % (0.0-1.0); EOS # 0.1 10^3/uL (0.0-0.5); EOS % 2.1 % (0.0-3.0); HEMATOCRIT 38.8 % (36.0-47.0); HEMOGLOBIN 12.7 g/dl (12.0-15.5); LYMPH # 2.3 10^3/uL (1.5-5.0); LYMPH % 37.6 % (24.0-44.0); MEAN CORPUSCULAR HEMOGLOBIN 29.6 pg (27.0-33.0); MEAN CORPUSCULAR HGB CONC 32.7 g/dl (32.0-36.5); MEAN CORPUSCULAR VOLUME 90.4 fl (80.0-96.0); MONO # 0.6 10^3/uL (0.0-0.8); MONO % 10.3 % (2.0-8.0); NEUTROPHILS # 2.9 10^3/uL (1.5-8.5); PLATELET COUNT, AUTOMATED 185 10^3/uL (150-450); RED BLOOD COUNT 4.29 10^6/uL (4.00-5.40); WHITE BLOOD COUNT 6.1 10^3/uL (4.0-10.0)
[2024-05-15 12:44] LABS: BILIRUBIN,TOTAL 0.5 MG/DL (0.3-1.2); CALCIUM LEVEL 10.2 MG/DL (8.3-10.6); CHOLESTEROL RISK RATIO 3.47 (<5); CREATININE FOR GFR 1.14 MG/DL (0.55-1.30); GLOMERULAR FILTRATION RATE 49.1 (>39); HDL CHOLESTEROL 47.5 MG/DL (>40); LDL CHOLESTEROL 86.9 MG/DL (<100); NON-HDL-C 117.5 MG/DL; POTASSIUM SERUM 3.5 MMOL/L (3.5-5.1); TOTAL PROTEIN 7.3 G/DL (5.7-8.2)
== END ==
LOC: M WUC 09:03
PROVIDERS: ATTEND Nurse Practitioner Adult Health
DX: R73.03 Prediabetes (principal); Z79.899 Other long term (current) drug therapy

== ENCOUNTER → 2024-06-05 | Outpatient (REF) | payer MEDICARE ==
[2024-06-05 15:51] LABS: CALCIUM LEVEL 9.8 MG/DL (8.3-10.6); CREATININE FOR GFR 1.04 MG/DL (0.55-1.30); GLOMERULAR FILTRATION RATE 54.6 (>39); POTASSIUM SERUM 4.1 MMOL/L (3.5-5.1)
== END ==
LOC: M LABWUC 12:59
PROVIDERS: ATTEND Nurse Practitioner Adult Health
DX: I10 Essential (primary) hypertension (principal)

== ENCOUNTER → 2024-06-22 | Outpatient (CLI) | payer MEDICARE ==
[~2024-06-22] MED LIST changes: +ISOVUE-370 76% 100ML VIAL As Ordered ONE
== END ==
LOC: M RAD 07:48
PROVIDERS: ATTEND Internal Medicine Cardiovascular Disease
DX: I73.9 Peripheral vascular disease, unspecified (principal)
CPT/HCPCS: 75635; Q9967

== ENCOUNTER → 2024-11-24 | Outpatient (CLI) | payer MEDICARE ==
[~2024-11-24] MED LIST changes: +ISOVUE-370 76% 100 ML VIAL ONE; -ISOVUE-370 76% 100ML VIAL As Ordered ONE
== END ==
LOC: M PLAIMG 09:11
PROVIDERS: ATTEND Nurse Practitioner Adult Health
DX: R14.0 Abdominal distension (gaseous) (principal)
CPT/HCPCS: 74177; Q9967